=== PATIENT | male | born 1945 | race Caucasian/White ===

== ENCOUNTER → 2017-08-06 | Outpatient (CLI) | payer BC ==
[~2017-08-06] MED LIST: ASPEC325 PO; CLOP1TAB15 PO; GLC500 PO; ISOS30TA3 PO; MCR25 PO; METO50TA7 PO; SIMV20TA2 PO; ZYRUNK
[2017-08-06 12:06] LABS: HEMATOCRIT 37.4 % (42-52); MEAN CELL VOLUME 93.3 fL (80-100); MEAN CORPUSCULAR HEMOGLOBIN 30.4 pg (25-34); MEAN CORPUSCULAR HGB CONC 32.6 g/dl (32-36); MEAN PLATELET VOLUME 10.1 fL (7.4-10.4); PLATELET COUNT 294 K/uL (130-400); RED BLOOD COUNT 4.01 M/uL (4.7-6.1); WHITE BLOOD COUNT 6.83 K/uL (4.8-10.8)
[2017-08-06 12:20] LABS: ALT/SGPT 22 U/L (12-78); BLOOD UREA NITROGEN 20 mg/dl (7-18); BUN/CREATININE RATIO 24.2 (10-20); CALCIUM 9.4 mg/dl (8.5-10.1); CARBON DIOXIDE 30 mmol/L (21-32); CHLORIDE 101 mmol/L (98-107); CREATININE 0.83 mg/dl (0.60-1.40); GLUCOSE 144 mg/dl (70-99); SODIUM 137 mmol/L (136-145)
[2017-08-06 12:30] LABS: ALKALINE PHOSPHATASE 40 U/L (45-117); AST/SGOT 22 U/L (15-37); CHOLESTEROL 124 mg/dl (0-200); CHOLESTEROL/HDL RATIO 2.7; HDL CHOLESTEROL 46 mg/dl; LDL CHOLESTEROL CALCULATED 56 mg/dl; TRIGLYCERIDES 110 mg/dl (0-150); VERY LOW DENSITY LIPOPROT CALC 22 mg/dl
[2017-08-06 12:47] LABS: ESTIMATED AVERAGE GLUCOSE 197 mg/dl; HA1C FLAG Normal (Normal)
== END | disposition home or self-care (01) ==
LOC: C.LABBFT 07:15
PROVIDERS: ATTEND Internal Medicine Cardiovascular Disease
DX: E11.41 Type 2 diabetes mellitus with diabetic mononeuropathy (principal)

== ENCOUNTER 2020-10-16 18:07 | Inpatient (IN) ==
[2020-10-16] MEDS ORDERED: ACETAMINOPHEN 500 MG TAB PO STA (18:49)
--- NOTE | 2020-10-16 18:57 | Emergency Department Note ---
History of Present Illness General Chief complaint: Illness Stated complaint: WEAKNESS, STAGGERING, FATIGUE, SOB Time Seen by Provider: 10/16/20 18:29 Source: patient Mode of arrival: ambulatory Limitations: no limitations History of Present Illness Maximum Pain Intensity: 4 This patient is a 75-year-old male who presents to the emergency department for evaluation of weakness, fatigue, loss of balance, decreased appetite and shortness of breath. He states that symptoms started 5 days ago but have really worsened over the past 3-4 days. He feels extremely tired and unable to do his normal daily activities. He states that he has some dizziness when he stands up and loss of balance when he tries to get around the house. He notes some intermittent shortness of breath. He has not checked his temperature. He denies any pain, cough, or nasal congestion. Patient lives at home with his and states that she has not been sick. He does report that they have been out of the house intermittently and in contact with "a few" people. He is unaware of any known [facility] contacts. Home Medications Medication Instructions Recorded Confirmed Type ascorbate calcium (vitamin C) 500 500 mg PO QPM 06/19/19 10/16/20 History mg tablet multivitamin 1 tab PO QPM 06/19/19 10/16/20 History nitroglycerin 0.4 mg sublingual 0.4 mg SL DIRECTED PRN 06/19/19 10/16/20 History tablet Zyrtec 10 mg PO DIRECTED PRN 06/23/19 10/16/20 History metoprolol tartrate 50 mg tablet 25 mg PO BID #90 tab 09/28/19 10/16/20 Rx metformin 500 mg tablet 1,000 mg PO BID #360 tab 03/28/20 10/16/20 Rx atorvastatin 80 mg tablet 80 mg PO HS #90 tab 06/29/20 10/16/20 Rx glimepiride 4 mg tablet 4 mg PO BID #180 tab 06/29/20 10/16/20 Rx isosorbide mononitrate 120 mg 120 mg PO QAM #90 tab 06/29/20 10/16/20 Rx tablet,extended release 24 hr levothyroxine 50 mcg tablet 50 mcg PO QAM #90 tab 08/30/20 10/16/20 Rx aspirin [Aspirin Low Dose] 81 mg PO QAM 10/16/20 10/16/20 History dulaglutide [Trulicity] 1.5 mg SQ WK 10/16/20 10/16/20 History Allergies Allergy/AdvReac Type Severity Reaction Status Date / Time peanut Allergy Mild THROAT Verified 09/29/20 09:48 SCRATCHY,SWELLING Past Med/Surg History Medical History (Updated 10/18/20 @ 06:10 by Tata Elise PA-C) Antiplatelet or antithrombotic long-term use Arthritis CAD (coronary artery disease) S/p 1 stent in 10/2008 Diabetes TYPE 2 History of EKG ECG 07-SEP-2018 showed normal sinus rhythm (78) with normal ECG compared with ECG of 03-MAY-2007 07:16, Inverted T waves have replaced nonspecific T wave abnormality in Inferior leads T wave amplitude has decreased in Anterior leads Hyperlipidemia Hypothyroid Surgical History History of ankle surgery Right ankle, screws placed, 1970s History of cardiac cath 2007 1 STENT History of colonoscopy (06/2019) 3 tubular adenomas, recheck 5 years, Case History of coronary artery stent placement History of intravascular stent placement CARDIAC History of open reduction and internal fixation (ORIF) procedure RIGHT ANKLE-INFECTION S/P Mohs surgery for basal cell carcinoma Family History Mother Diabetes Uncle Myocardial infarction Denies family history of Ovarian cancer Prostate cancer Breast cancer Colorectal cancer Social History Smoking Status: Former smoker Age Started Using Tobacco: 18; Age Quit Using Tobacco: 36; packs per day: 0.5; Years Smoked: 18; Cigarettes Per Day: <10; Number of Years Since Quit: 35; Second Hand Exposure: No; Hx Alcohol Use: Yes Alcohol type: beer and wine Alcohol Intake Frequency: Monthly or Less Hx Substance Use: No Preferred Language: Kiswahili Communication Ability: Effective Visual Impairment: No Limitations Hearing Ability: Normal [employer] Worker Required: No Beliefs That Will Affect Care: None marital status: Current Living Situation: Spouse current occupational status: employed current occupation: self employed Feels Safe at Home: Yes Safety Concerns: Feels Safe At This Time Childhood Exposure to Second-Hand Smoke: Yes caffeine: Yes (coffee) during the past year weight has: remained stable Dental Care, Regularly: Yes Physical Activity Frequency: Daily Seatbelt Use: always Sunscreen Use: Yes Assistive Devices: Denture - Upper, Denture - Lower, Glasses and Oxygen - Continuous Review of Systems A total of 10 systems reviewed and were otherwise negative Physical Exam Vital Signs Vital Signs - 24 hr 10/16/20 18:22 10/16/20 18:25 10/16/20 18:42 Temperature 37.2 C 39.2 C H Temperature Source Oral Oral Pulse Rate 92 H Respiratory Rate 18 Respiratory Effort / Characteristics Non-Labored Spontaneous Respiratory Depth Normal Blood Pressure 149/67 H Blood Pressure Mean 94 Pulse Oximetry 82 L 92 Oxygen Delivery Method Room Air Nasal Cannula Oxygen Flow Rate 4 Sepsis Recent Fever Within 48 Hours No Sepsis New/Unexplained Change in Mental Status No Sepsis Action Taken by Nursing No Action Required VITALS: Vitals are noted on the nurse's note and reviewed by myself. GENERAL: This is a 75-year-old male, ill-appearing, pale. SKIN: The skin was without rashes. EARS: External auditory canals clear, tympanic membranes pearly arellano without erythema or effusion bilaterally. EYES: Pupils equal round and reactive to light and accommodation. NOSE: Patent, turbinates without inflammation or discharge. MOUTH: Mucous membranes moist. Tonsils are not enlarged. Pharynx without erythema or exudate. NECK: Supple without nuchal rigidity. No lymphadenopathy. HEART: Regular rate and rhythm without murmurs gallops or rubs. LUNGS: On O2 via nasal cannula. Clear to auscultation bilaterally without wheezes, rales or rhonchi. No retractions or accessory muscle use. ABDOMEN: Positive bowel sounds x 4. Soft, nontender to palpation. EXTREMITIES: No lower extremity edema or calf tenderness. NEURO: Patient was alert and oriented to person place and time. Course Consultations Consultation #1: Dr. Anderson - [facility] hospitalist Administered Medications Albuterol (Albuterol Hfa 8 Gm Inhaler) 2 puffs INH QIDR ANA MARIA Stop: 11/16/20 06:59 Last Admin: 10/17/20 20:36 Dose: 2 puffs Documented by: [id number] Admin: 10/17/20 15:16 Dose: 2 puffs Documented by: [id number] Admin: 10/17/20 11:23 Dose: 2 puffs Documented by: [id number] Admin: 10/17/20 07:26 Dose: 2 puffs Documented by: [id number] Aspirin (Aspirin 81 Mg Ectab) 81 mg PO QAM [facility] Stop: 11/16/20 08:59 Last Admin: 10/17/20 09:12 Dose: 81 mg Documented by: [id number] Atorvastatin Calcium (Atorvastatin 40 Mg Tab) 80 mg PO HS [facility] Stop: 11/16/20 20:59 Last Admin: 10/17/20 09:13 Dose: 80 mg Documented by: [id number] Enoxaparin Sodium (Enoxaparin Inj 60 Mg/0.6 Ml Syr) 50 mg SQ Q12H ANA MARIA Stop: 11/16/20 07:14 Last Admin: 10/17/20 21:27 Dose: 50 mg Documented by: [id number] Admin: 10/17/20 09:02 Dose: 50 mg Documented by: [id number] Ceftriaxone Sodium 2,000 mg/ (Dextrose) 70 mls @ 100 mls/hr IV Q24H ANA MARIA; Protocol Stop: 10/23/20 23:29 Last Infusion: 10/17/20 23:16 Dose: 0 mls/hr Documented by: [id number] Admin: 10/17/20 21:33 Dose: 100 mls/hr Documented by: [id number] Infusion: 10/17/20 03:49 Dose: 0 mls/hr Documented by: [id number] Infusion: 10/17/20 02:19 Dose: 100 mls/hr Documented by: [id number] Infusion: 10/17/20 01:42 Dose: 0 mls/hr Documented by: [id number] Admin: 10/17/20 01:37 Dose: 100 mls/hr Documented by: [id number] Azithromycin 500 mg/ Dextrose 255 mls @ 125 mls/hr IV DAILY ANA MARIA Stop: 10/24/20 08:59 Last Infusion: 10/17/20 12:14 Dose: 0 mls/hr Documented by: [id number] Admin: 10/17/20 10:22 Dose: 125 mls/hr Documented by: [id number] Remdesivir 100 mg/ Sodium (Chloride) 250 mls @ 250 mls/hr IV Q24H ANA MARIA; Protocol Stop: 10/21/20 00:59 Last Infusion: 10/18/20 00:14 Dose: 0 mls/hr Documented by: [id number] Admin: 10/17/20 23:14 Dose: 250 mls/hr Documented by: [id number] Dexamethasone Sodium Phosphate (6 mg/ Syringe) 1.5 mls @ 1 mls/min IV QAM [facility] Stop: 10/25/20 09:02 Last Admin: 10/17/20 09:11 Dose: 1 mls/min Documented by: [id number] Insulin Aspart (Insulin Aspart 100 Units/Ml 3 Ml Pen) 0 units SC ACHS ANA MARIA Stop: 11/16/20 07:29 Last Admin: 10/17/20 21:49 Dose: 5 units Documented by: [id number] Cosigned by: [id number] Admin: 10/17/20 17:43 Dose: 13 units Documented by: [id number] Cosigned by: [id number] Admin: 10/17/20 12:13 Dose: 10 units Documented by: [id number] Cosigned by: [id number] Admin: 10/17/20 10:44 Dose: 9 units Documented by: [id number] Cosigned by: [id number] Insulin Glargine (Insulin Glargine Solostar 100 Units/Ml 3 Ml Pen) 0 units SC HS [facility]; Protocol Stop: 11/16/20 20:59 Last Admin: 10/17/20 21:49 Dose: 20 units Documented by: [id number] Cosigned by: [id number] Isosorbide Mononitrate (Isosorbide [place] Extended Rel 60 Mg Tabcr) [facility] [place]: 11/16/20 08:59 Last Admin: 10/17/20 09:12 Dose: 120 mg Documented by: [id number] Levothyroxine Sodium (Levothyroxine Sodium 50 Mcg Tablet) 50 mcg PO DAILYBB [facility] Stop: 11/16/20 06:29 Last Admin: 10/17/20 04:54 Dose: 50 mcg Documented by: [id number] Metoprolol Tartrate (Metoprolol Tartrate 25 Mg Tab) 25 mg PO BID [facility] Stop: 11/15/20 22:54 Last Admin: 10/17/20 21:28 Dose: 25 mg Documented by: [id number] Admin: 10/17/20 09:13 Dose: 25 mg Documented by: [id number] Admin: 10/17/20 01:37 Dose: 25 mg Documented by: [id number] Multivitamins (Multivitamin Tab) 1 tab PO QPM [facility] Stop: 11/16/20 20:59 Last Admin: 10/17/20 21:29 Dose: 1 tab Documented by: [id number] Senna/Docusate Sodium (Docusate Sodium/Senna 50/8.6mg Tab) 2 tab PO HS ANA MARIA Stop: 11/16/20 20:59 Last Admin: 10/17/20 21:31 Dose: 2 tab Documented by: [id number] Sodium Chloride (Sodium Chloride 0.9% 10ml Flush) 30 ml IV Q24H ANA MARIA Stop: 10/21/20 00:01 Last Admin: 10/18/20 00:31 Dose: 30 ml Documented by: [id number] Admin: 10/17/20 02:19 Dose: 30 ml Documented by: [id number] Discontinued Medications Acetaminophen (Acetaminophen 500 Mg Tab) 1,000 mg PO NOW STA Stop: 10/16/20 18:50 Last Admin: 10/16/20 19:35 Dose: 1,000 mg Documented by: [id number] Sodium Chloride (Nss) 500 mls @ 999 mls/hr IV .Q31M ONE Stop: 10/16/20 20:53 Last Infusion: 10/16/20 22:03 Dose: 0 mls/hr Documented by: [id number] Admin: 10/16/20 21:21 Dose: 999 mls/hr Documented by: [id number] Remdesivir 200 mg/ Sodium (Chloride) 250 mls @ 125 mls/hr IV ONE ONE; Protocol Stop: 10/17/20 01:59 Last Infusion: 10/17/20 04:55 Dose: 0 mls/hr Documented by: [id number] Admin: 10/17/20 02:19 Dose: 125 mls/hr Documented by: [id number] Dexamethasone Sodium Phosphate (10 mg/ Syringe) 2.5 mls @ 1 mls/min IV 0000 ANA MARIA Stop: 10/17/20 00:30 Last Admin: 10/17/20 01:37 Dose: 1 mls/min Documented by: [id number] Insulin Human Regular 8 units/ (Syringe) 8 mls @ 30 mls/min IV TODAY@1245 ONE Stop: 10/17/20 12:46 Last Admin: 10/17/20 13:34 Dose: 30 mls/min Documented by: [id number] Cosigned by: [id number] Insulin Aspart (Insulin Aspart 100 Units/Ml 3 Ml Pen) 0 units SC 0200 ANA MARIA Stop: 10/18/20 02:01 Last Admin: 10/18/20 02:43 Dose: Not Given Documented by: [id number] Cosigned by: [id number] Insulin Human NPH (Insulin Human Nph) 40 units SC NOW ONE Stop: 10/17/20 12:31 Last Admin: 10/17/20 12:45 Dose: 40 units Documented by: [id number] Cosigned by: [id number] Ioversol (Optiray 320 125ml) 125 ml IV ONCE ONE Stop: 10/16/20 22:38 Last Admin: 10/16/20 22:38 Dose: 119 ml Documented by: [id number] Medical Decision Making Differential Diagnosis Differential diagnosis includes COVID-19, pneumonia, ACS, PE, pleural effusion, malignancy, pneumothorax, among others. Home Medications Current Medication List: was personally reviewed by me Laboratory Data Attestation: I reviewed the patient's lab results. Result diagrams: 10/16/20 19:26 10/16/20 19:26 Lab Results 10/16/20 10/16/20 10/16/20 Range/Units 19:26 19:26 19:26 WBC 11.00 H (4.8-10.8) K/uL RBC 3.62 L (4.7-6.1) M/uL Hgb 10.9 L (14.0-18.0) g/dL Hct 32.6 L (42-52) % MCV 90.1 (80-100) fL MCH 30.1 (25-34) pg MCHC 33.4 (32-36) g/dL RDW Std Deviation 41.4 (36.4-46.3) fL RDW Coeff of Shaheed 12.5 (11.5-14.5) % Plt Count 252 (130-400) K/uL MPV 10.5 H (7.4-10.4) fL Immature Gran % (Auto) 0.4 % Neut % (Auto) 89.7 % Lymph % (Auto) 6.7 % [place] % (Auto) 3.0 % Eos % (Auto) 0.0 % Baso % (Auto) 0.2 % Neut # (Auto) 9.87 H (1.4-6.5) K/uL Lymph # (Auto) 0.74 L (1.2-3.4) K/uL [place] # (Auto) 0.33 (0.11-0.59) K/uL Eos # (Auto) 0.00 (0-0.5) K/uL Baso # (Auto) 0.02 (0-0.2) K/uL Immature Gran # (Auto) 0.04 H (0.00-0.02) K/uL D-Dimer (0-500) ug/L FEU VBG pH (7.36-7.41) VBG pCO2 (38-50) mmHg VBG pO2 mmHg VBG HCO3 mmol/L VBG O2 Saturation % VBG Base Excess mEq/L Barometric Pressure mm/Hg Sodium 130 L (136-145) mmol/L Potassium 3.5 (3.5-5.1) mmol/L Chloride 93 L (98-107) mmol/L Carbon Dioxide 25 (21-32) mmol/L Anion Gap 12.0 H (3-11) BUN 27 H (7-18) mg/dl Creatinine 1.13 (0.6-1.4) mg/dl Est Cr Clr Drug Dosing Not Reportable Est GFR ( Amer) 73.8 Est GFR (Non-Af Amer) 63.7 BUN/Creatinine Ratio 23.8 H (10-20) Glucose 280 H (70-99) mg/dl Estimat Average Glucose mg/dl Hemoglobin A1c (4.5-5.6) % Calcium 9.2 (8.5-10.1) mg/dl Total Bilirubin 0.8 (0.2-1) mg/dl AST 53 H (15-37) U/L ALT 35 (12-78) U/L Alkaline Phosphatase 39 L (45-117) U/L Troponin I < 0.015 (0-0.045) ng/ml Total Protein 8.0 (6.4-8.2) gm/dl Albumin 3.1 L (3.4-5.0) gm/dl Globulin 4.9 H (2.5-4.0) gm/dl Albumin/Globulin Ratio 0.6 L (0.9-2) COVID-19 Eval Order SARS-CoV-2, RNA, NAAT (NEGATIVE) Blood Type O Positive Antibody Screen NEGATIVE 10/16/20 10/16/20 10/16/20 Range/Units 19:26 19:26 19:27 WBC (4.8-10.8) K/uL RBC (4.7-6.1) M/uL Hgb (14.0-18.0) g/dL Hct (42-52) % MCV (80-100) fL MCH (25-34) pg MCHC (32-36) g/dL RDW Std Deviation (36.4-46.3) fL RDW Coeff of Shaheed (11.5-14.5) % Plt Count (130-400) K/uL MPV (7.4-10.4) fL Immature Gran % (Auto) % Neut % (Auto) % Lymph % (Auto) % [place] % (Auto) % Eos % (Auto) % Baso % (Auto) % Neut # (Auto) (1.4-6.5) K/uL Lymph # (Auto) (1.2-3.4) K/uL [place] # (Auto) (0.11-0.59) K/uL Eos # (Auto) (0-0.5) K/uL Baso # (Auto) (0-0.2) K/uL Immature Gran # (Auto) (0.00-0.02) K/uL D-Dimer (0-500) ug/L FEU VBG pH 7.44 H (7.36-7.41) VBG pCO2 37 L (38-50) mmHg VBG pO2 34 mmHg VBG HCO3 24 mmol/L VBG O2 Saturation 65.3 % VBG Base Excess 0.3 mEq/L Barometric Pressure 734.9 mm/Hg Sodium (136-145) mmol/L Potassium (3.5-5.1) mmol/L Chloride (98-107) mmol/L Carbon Dioxide (21-32) mmol/L Anion Gap (3-11) BUN (7-18) mg/dl Creatinine (0.6-1.4) mg/dl Est Cr Clr Drug Dosing Est GFR ( Amer) Est GFR (Non-Af Amer) BUN/Creatinine Ratio (10-20) Glucose (70-99) mg/dl Estimat Average Glucose 214 mg/dl Hemoglobin A1c 9.1 H (4.5-5.6) % Calcium (8.5-10.1) mg/dl Total Bilirubin (0.2-1) mg/dl AST (15-37) U/L ALT (12-78) U/L Alkaline Phosphatase (45-117) U/L Troponin I (0-0.045) ng/ml Total Protein (6.4-8.2) gm/dl Albumin (3.4-5.0) gm/dl Globulin (2.5-4.0) gm/dl Albumin/Globulin Ratio (0.9-2) COVID-19 [email or web address] SARS-CoV-2, RNA, NAAT (NEGATIVE) Blood Type Antibody Screen 10/16/20 10/16/20 Range/Units 19:27 19:35 WBC (4.8-10.8) K/uL RBC (4.7-6.1) M/uL Hgb (14.0-18.0) g/dL Hct (42-52) % MCV (80-100) fL MCH (25-34) pg MCHC (32-36) g/dL RDW Std Deviation (36.4-46.3) fL RDW Coeff of Shaheed (11.5-14.5) % Plt Count (130-400) K/uL MPV (7.4-10.4) fL Immature Gran % (Auto) % Neut % (Auto) % Lymph % (Auto) % [place] % (Auto) % Eos % (Auto) % Baso % (Auto) % Neut # (Auto) (1.4-6.5) K/uL Lymph # (Auto) (1.2-3.4) K/uL [place] # (Auto) (0.11-0.59) K/uL Eos # (Auto) (0-0.5) K/uL Baso # (Auto) (0-0.2) K/uL Immature Gran # (Auto) (0.00-0.02) K/uL D-Dimer 1640 H* (0-500) ug/L FEU VBG pH (7.36-7.41) VBG pCO2 (38-50) mmHg VBG pO2 mmHg VBG HCO3 mmol/L VBG O2 Saturation % VBG Base Excess mEq/L Barometric Pressure mm/Hg Sodium (136-145) mmol/L Potassium (3.5-5.1) mmol/L Chloride (98-107) mmol/L Carbon Dioxide (21-32) mmol/L Anion Gap (3-11) BUN (7-18) mg/dl Creatinine (0.6-1.4) mg/dl Est Cr Clr Drug Dosing Est GFR ( Amer) Est GFR (Non-Af Amer) BUN/Creatinine Ratio (10-20) Glucose (70-99) mg/dl Estimat Average Glucose mg/dl Hemoglobin A1c (4.5-5.6) % Calcium (8.5-10.1) mg/dl Total Bilirubin (0.2-1) mg/dl AST (15-37) U/L ALT (12-78) U/L Alkaline Phosphatase (45-117) U/L Troponin I (0-0.045) ng/ml Total Protein (6.4-8.2) gm/dl Albumin (3.4-5.0) gm/dl Globulin (2.5-4.0) gm/dl Albumin/Globulin Ratio (0.9-2) COVID-19 Eval Order SARS-CoV-2, RNA, NAAT POSITIVE A* (NEGATIVE) Blood Type Antibody Screen Imaging Data Attestation: I personally reviewed and interpreted this imaging study as follows: Radiologist's Impression: XR chest 1V portable FINDINGS: Cardiomediastinal and hilar silhouettes are within normal limits. No pneumothorax, pleural effusion or overt pulmonary edema. Bibasilar predominant interstitial opacities. No lobar airspace consolidation. Degenerative changes of the shoulders and spine. IMPRESSION: Interstitial opacities of the lung bases are suggestive of a nonspecific infectious or inflammatory pneumonitis. CT angio chest PE protocol FINDINGS: CTA: Heart is normal in size without pericardial effusion. Moderate coronary artery calcifications. Mild mixed plaque of the thoracic aorta without aneurysm or dissection. Patency of the imaged great vessels. The pulmonary arterial tree is opacified to the level of the subsegmental branches. No filling defects lorelei ntified to suggest thromboembolic disease. CT CHEST: Unremarkable thyroid. Prominent mediastinal and hilar lymph nodes measuring up to 9 mm. The inferior lung bases are not imaged, partially outside the [id number]. There is no pneumothorax, pleural effusion or overt pulmonary edema. Mild tracheobronchial secretions. Subpleural dependent predominant groundglass and alveolar opacities are noted within the bilateral lower lobes with additional patchy subtle subsegmental groundglass opacities noted within the right middle and bilateral upper lobes. Mild subpleural reticulation. No definite suspicious pulmonary nodules or masses. No acute process of the imaged upper abdomen. Mild gynecomastia. Unremarkable soft tissues. Degenerative changes of the shoulders and spine. No acute fracture or suspicious bone lesion. IMPRESSION: 1. No evidence of pulmonary thromboembolic disease. 2. Bibasilar predominant groundglass and consolidative opacities are compatible with a nonspecific multifocal infectious or inflammatory pneumonitis. 3. Prominent mediastinal and hilar lymph nodes are likely reactive. ECG Data Attestation: I personally reviewed and interpreted this ECG as follows: Indication: + SOB/dyspnea Rate (beats per minute): 98 Rhythm: + normal sinus ECG ST segments: + Nonspecific ST abnormalities ECG Findings: + PACs Change: no significant change MDM Narrative This patient is a 75-year-old male who presents to the emergency department for evaluation of fatigue, dyspnea and fever. Patient is COVID-19 positive. Chest x-ray consistent with COVID-19. Labs revealed a mild leukocytosis, mild anemia. Kidney function within normal limits. Troponin was not elevated. D-dimer was ordered at request of the hospitalist and was elevated. Chest CTA then performed at the request. Patient did arrive hypoxic with oxygen saturation of 82% on room air. Patient placed on oxygen via nasal cannula with improvement of his oxygen saturation. Patient will be admitted to the hospitalist service for further evaluation and care. Impression & Plan Pneumonia due to COVID-19 virus, Hypoxia Discharge Plan Visit Data Chief Complaint: Illness Stated Complaint: WEAKNESS, STAGGERING, FATIGUE, SOB ED Provider: Jovanny Brock ED Midlevel Provider: Tata Elise Discharge Problem: Pneumonia due to COVID-19 virus, Hypoxia Patient Disposition: Admitted As Inpatient Discharge Instructions Interventions: ED Discharge Assessment Last Done: 10/16/20 22:13
[2020-10-16 19:51] LABS: Hematocrit (blood only) 32.6 % (42-52); Hemoglobin 10.9 g/dL (14.0-18.0); Mean Corpuscular Hemoglobin 30.1 pg (25-34); Mean Corpuscular Hgb Conc 33.4 g/dL (32-36); Mean Corpuscular Volume 90.1 fL (80-100); Mean Platelet Volume 10.5 fL (7.4-10.4); Platelet Count 252 K/uL (130-400); RDW Coefficient of Variation 12.5 % (11.5-14.5); RDW Standard Deviation 41.4 fL (36.4-46.3); Red Blood Count 3.62 M/uL (4.7-6.1)
[2020-10-16 19:52] LABS: Base Excess VBG 0.3 mEq/L; Oxygen Saturation VBG 65.3 %; pH VBG 7.44 (7.36-7.41)
[2020-10-16 20:11] LABS: Alanine Aminotransferase 35 U/L (12-78); Albumin Level 3.1 gm/dl (3.4-5.0); Aspartate Aminotransferase 53 U/L (15-37); BUN Creatinine Ratio 23.8 (10-20); Blood Urea Nitrogen 27 mg/dl (7-18); Calcium 9.2 mg/dl (8.5-10.1); Carbon Dioxide 25 mmol/L (21-32); Chloride 93 mmol/L (98-107); Est GFR (African American) 73.8; Est GFR (Non-African American) 63.7; Glucose 280 mg/dl (70-99); Potassium 3.5 mmol/L (3.5-5.1); Sodium 130 mmol/L (136-145)
[2020-10-16 20:15] LABS: Albumin Globulin Ratio 0.6 (0.9-2); Alkaline Phosphatase 39 U/L (45-117); Bilirubin,Total 0.8 mg/dl (0.2-1); Globulin 4.9 gm/dl (2.5-4.0); Troponin I < 0.015 ng/ml (0-0.045)
[2020-10-16] MEDS ORDERED: SODIUM CHLORIDE 0.9% 500 ML IV ONE (20:23)
[2020-10-16 20:41] LABS: Basophils # (auto) 0.02 K/uL (0-0.2); Basophils % (auto) 0.2 %; Immature Granulocytes # (auto) 0.04 K/uL (0.00-0.02); Immature Granulocytes % (auto) 0.4 %; Lymphocytes # (auto) 0.74 K/uL (1.2-3.4); Lymphocytes % (auto) 6.7 %; Monocytes # (auto) 0.33 K/uL (0.11-0.59); Neutrophils # (auto) 9.87 K/uL (1.4-6.5); Neutrophils % (auto) 89.7 %
[2020-10-16 20:53] LABS: D Dimer 1640 ug/L FEU (0-500)
--- NOTE | 2020-10-16 21:47 | History & Physical Report ---
Date of Service October 16, 2020 Assessment & Plan (1) Pneumonia due to COVID-19 virus: Pneumonia due to COVID-19 virus with hypoxia- Decadron 6 mg IV daily. Convalescent plasma, consent obtained Remdesivir IV per protocol Ceftriaxone 2 g IV daily Azithromycin 500 mg IV daily Nasal cannula oxygen, titrate to keep pulse ox 95% Ventolin HFA 2 puffs 4 times daily, and every 2 hours as needed Present on Admission?: Yes (2) Hypoxia: See above Present on Admission?: Yes (3) Hyperlipidemia: Continue atorvastatin 80 mg daily Present on Admission?: Yes (4) Hypothyroidism: Continue levothyroxine sodium 50 mcg daily Present on Admission?: Yes (5) CAD (coronary artery disease): CAD/hypertension Continue aspirin 81 mg daily, isosorbide mononitrate extended release 120 mg daily, metoprolol tartrate 25 mg p.o. 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 Placed on Accu-Cheks before meals and at bedtime with NovoLog coverage per scale Check hemoglobin A1c Present on Admission?: Yes History of Present Illness Chief Complaint: The patient presents to the emergency department with complaint of generalized weakness, fatigue, loss of balance, decreased appetite and shortness of breath that began 5 days ago, but have worsened over the past 3 to 4 days Primary Care Provider: Steve Vidal MD The patient is a 75-year-old male with a past medical history including basal cell carcinoma, diabetes mellitus with retinopathy, angina class II, hyperlipidemia, hypothyroidism, peripheral neuropathy, postural dizziness, CAD and hyponatremia. He presents as noted above to the ED at the insistence of family and . Work-up in the emergency department included laboratories: Sodium 120, glucose 280, AST 53, albumin 3.1, WBC 11.0. COVID-19 testing was positive. Chest x-ray was negative. D-dimer was elevated at 1640. Patient's pulse ox was noted initially to be 82% on room air Allergies Allergy/AdvReac Type Severity Reaction Status Date / Time peanut Allergy Mild THROAT Verified 09/29/20 09:48 SCRATCHY,SWELLING Home Medications Medication Instructions Recorded Confirmed Type ascorbate calcium (vitamin C) 500 500 mg PO QPM 06/19/19 10/16/20 History mg tablet multivitamin 1 tab PO QPM 06/19/19 10/16/20 History nitroglycerin 0.4 mg sublingual 0.4 mg SL DIRECTED PRN 06/19/19 10/16/20 History tablet Zyrtec 10 mg PO DIRECTED PRN 06/23/19 10/16/20 History metoprolol tartrate 50 mg tablet 25 mg PO BID #90 tab 09/28/19 10/16/20 Rx metformin 500 mg tablet 1,000 mg PO BID #360 tab 03/28/20 10/16/20 Rx atorvastatin 80 mg tablet 80 mg PO HS #90 tab 06/29/20 10/16/20 Rx glimepiride 4 mg tablet 4 mg PO BID #180 tab 06/29/20 10/16/20 Rx isosorbide mononitrate 120 mg 120 mg PO QAM #90 tab 06/29/20 10/16/20 Rx tablet,extended release 24 hr levothyroxine 50 mcg tablet 50 mcg PO QAM #90 tab 08/30/20 10/16/20 Rx aspirin [Aspirin Low Dose] 81 mg PO QAM 10/16/20 10/16/20 History dulaglutide [Trulicity] 1.5 mg SQ WK 10/16/20 10/16/20 History Past Med/Surg History Medical History (Updated 10/17/20 @ 05:34 by Feroz Anderson MD) Antiplatelet or antithrombotic long-term use Arthritis CAD (coronary artery disease) S/p 1 stent in 10/2008 Diabetes TYPE 2 History of EKG ECG 07-SEP-2018 showed normal sinus rhythm (78) with normal ECG compared with ECG of 03-MAY-2007 07:16, Inverted T waves have replaced nonspecific T wave abnormality in Inferior leads T wave amplitude has decreased in Anterior leads Hyperlipidemia Hypothyroid Surgical History History of ankle surgery Right ankle, screws placed, 1970s History of cardiac cath 2007 1 STENT History of colonoscopy (06/2019) 3 tubular adenomas, recheck 5 years, Case History of coronary artery stent placement History of intravascular stent placement CARDIAC History of open reduction and internal fixation (ORIF) procedure RIGHT ANKLE-INFECTION S/P Mohs surgery for basal cell carcinoma Family History Mother Diabetes Uncle Myocardial infarction Denies family history of Ovarian cancer Prostate cancer Breast cancer Colorectal cancer Social History Smoking Status: Former smoker Age Started Using Tobacco: 18; Age Quit Using Tobacco: 36; packs per day: 0.5; Years Smoked: 18; Cigarettes Per Day: <10; Number of Years Since Quit: 35; Second Hand Exposure: No; Hx Alcohol Use: Yes Alcohol type: beer and wine Alcohol Intake Frequency: Monthly or Less Hx Substance Use: No Preferred Language: Mongolian Communication Ability: Effective Visual Impairment: No Limitations Hearing Ability: Normal Lead Java J2Ee Developer Required: No Beliefs That Will Affect Care: None marital status: Current Living Situation: Spouse current occupational status: employed current occupation: self employed Feels Safe at Home: Yes Safety Concerns: Feels Safe At This Time Childhood Exposure to Second-Hand Smoke: Yes caffeine: Yes (coffee) during the past year weight has: remained stable Dental Care, Regularly: Yes Physical Activity Frequency: Daily Seatbelt Use: always Sunscreen Use: Yes Assistive Devices: Brace/Splint/Immobilizer, Denture - Upper, Denture - Lower and Glasses Review of Systems Review of Systems: The patient denies chest pain, palpitations, cough, lower extremity swelling, sore throat, fevers, chills, sweats, nausea, vomiting, diarrhea, constipation, abdominal pain, pelvic pain, blood in urine or stool, dysuria, urinary frequency or urgency, lightheadedness, dizziness, headache, memory loss, loss of consciousness, rash, abnormal bruising or bleeding, imbalance, focal weakness, numbness or tingling in arms or legs, back or neck pain, or night sweats. The review of systems is otherwise negative other than for that already noted above, and at least 10 systems have been reviewed. Physical Exam Physical Exam: The patient is awake, alert and oriented 3, well developed and well nourished, normocephalic and atraumatic, lying in bed and in no acute distress. HEENT--PERRL, EOMI, mucous membranes and oropharynx normal. Neck--supple. No JVD. No bruits. Thyroid normal, trachea midline, no adenopathy. Heart--normal S1 and S2. No murmurs, rubs or gallops. Lungs--clear bilaterally, no respiratory distress, no accessory muscle use. Abdomen--normal bowel sounds and soft. Nontender. Nondistended. Extremities--no cyanosis or clubbing. No edema. Dermatologic--normal skin turgor, normal color, no abnormal lymph nodes, no rash. Neurologic--cranial nerves II through XII grossly intact. Rheumatologic--normal range of motion. Psychiatric--normal affect. Results & Data Results & Data ([facility]) Vital Signs (Past 12 Hours) Vital Signs Temp Pulse Resp BP Pulse Ox 10/16/20 21:30 72 20 116/98 97 10/16/20 21:22 99.1 F 10/16/20 21:00 83 12 135/78 95 10/16/20 20:30 78 35 H 125/62 99 10/16/20 20:00 93 H 37 H 114/67 94 10/16/20 19:35 97 H 22 130/68 97 10/16/20 19:30 92 H 18 97 10/16/20 18:42 102.6 F H 10/16/20 18:25 92 10/16/20 18:22 99.0 F 92 H 18 149/67 H 82 L Laboratory Results Laboratory Results WBC 11.00 K/uL (4.8-10.8) H 10/16/20 19: RBC 3.62 M/uL (4.7-6.1) L 10/16/20 19: Hgb 10.9 g/dL (14.0-18.0) L 10/16/20 19: Hct 32.6 % (42-52) L 10/16/20 19: MCV 90.1 fL (80-100) 10/16/20 19: MCH 30.1 pg (25-34) 10/16/20 19: MCHC 33.4 g/dL (32-36) 10/16/20 19: RDW Std Deviation 41.4 fL (36.4-46.3) 10/16/20 19: RDW Coeff of Shaheed 12.5 % (11.5-14.5) 10/16/20 19: Plt Count 252 K/uL (130-400) 10/16/20 19: MPV 10.5 fL (7.4-10.4) H 10/16/20 19: Immature Gran % (Auto) 0.4 % 10/16/20 19: Neut % (Auto) 89.7 % 10/16/20 19: Lymph % (Auto) 6.7 % 10/16/20 19: Armstrong % (Auto) 3.0 % 10/16/20 19: Eos % (Auto) 0.0 % 10/16/20 19: Baso % (Auto) 0.2 % 10/16/20 19: Neut # (Auto) 9.87 K/uL (1.4-6.5) H 10/16/20 19: Lymph # (Auto) 0.74 K/uL (1.2-3.4) L 10/16/20 19: Armstrong # (Auto) 0.33 K/uL (0.11-0.59) 10/16/20 19: Eos # (Auto) 0.00 K/uL (0-0.5) 10/16/20 19: Baso # (Auto) 0.02 K/uL (0-0.2) 10/16/20 19: Immature Gran # (Auto) 0.04 K/uL (0.00-0.02) H 10/16/20 19: D-Dimer 1640 ug/L FEU (0-500) H* 10/16/20 19:35 VBG pH 7.44 (7.36-7.41) H 10/16/20 19: VBG pCO2 37 mmHg (38-50) L 10/16/20 19: VBG pO2 34 mmHg 10/16/20 19:26 VBG HCO3 24 mmol/L 10/16/20 19:26 VBG O2 Saturation 65.3 % 10/16/20 19: VBG Base Excess 0.3 mEq/L 10/16/20 19:26 Barometric Pressure 734.9 mm/Hg 10/16/20 19:26 Sodium 130 mmol/L (136-145) L 10/16/20 19: Potassium 3.5 mmol/L (3.5-5.1) 10/16/20 19: Chloride 93 mmol/L (98-107) L 10/16/20 19:26 Carbon Dioxide 25 mmol/L (21-32) 10/16/20 19:26 Anion Gap 12.0 (3-11) H 10/16/20 19:26 BUN 27 mg/dl (7-18) H 10/16/20 19:26 Creatinine 1.13 mg/dl (0.6-1.4) 10/16/20 19:26 Est Cr Clr Drug Dosing Not Reportable 10/16/20 19:26 Est GFR ( Amer) 73.8 10/16/20 19:26 Est GFR (Non-Af Amer) 63.7 10/16/20 19:26 BUN/Creatinine Ratio 23.8 (10-20) H 10/16/20 19:26 Glucose 280 mg/dl (70-99) H 10/16/20 19:26 Calcium 9.2 mg/dl (8.5-10.1) 10/16/20 19:26 Total Bilirubin 0.8 mg/dl (0.2-1) 10/16/20 19:26 AST 53 U/L (15-37) H 10/16/20 19:26 ALT 35 U/L (12-78) 10/16/20 19:26 Alkaline Phosphatase 39 U/L (45-117) L 10/16/20 19:26 Troponin I < 0.015 ng/ml (0-0.045) 10/16/20 19:26 Total Protein 8.0 gm/dl (6.4-8.2) 10/16/20 19:26 Albumin 3.1 gm/dl (3.4-5.0) L 10/16/20 19:26 Globulin 4.9 gm/dl (2.5-4.0) H 10/16/20 19:26 Albumin/Globulin Ratio 0.6 (0.9-2) L 10/16/20 19:26 COVID-19 Eval Order Covid19 [facility]Now [facility] 10/16/20 19:27 SARS-CoV-2, RNA, NAAT POSITIVE (NEGATIVE) A* 10/16/20 19:27 Blood Type O Positive 10/16/20 19:26 Antibody Screen NEGATIVE 10/16/20 19:26 Diagnostic Findings [facility] Patient: STONE, HANY E (Male) : 47 Status: ER Date: 10/16/20 22:44 Room #: History: COVID + ELEVATED D DIMER SOB Slices: [id number] Priors: Giselle: Andre Milian @ [phone] Exams: CTA CHEST Contrast: Accession Numbers: [id number] Preliminary Findings Only See Final Report For Complete Findings CTA CHEST: The pulmonary arterial tree is well-opacified with contrast. No pulmonary emboli are identified. The thoracic aorta is mildly calcified. There is no aneurysm or dissection. The heart size is within normal limits. Mild coronary calcification is present. No pericardial effusion. Lungs demonstrate scattered faint groundglass opacities in the periphery of the upper lungs coalescing to interstitial infiltrates in the lower lobes bilaterally consistent with Covid 19 pneumonia. No pneumothorax or pleural effusion is seen. Radiologist: Doug Koenig MD Study ready at 22:49 and initial results transmitted at 23:06 *This report constitutes a preliminary interpretation only. Non-acute findings felt to be unrelated to the clinical presentation may not be discussed in this report. The study will be interpreted and a final report will be generated by the local Radiologist the following shift. To reach the hospital radiology department call [phone]. If a discrepancy is found between the preliminary and final interpretations of this study, please notify us via our Client Portal at [email or web address] can also fax this report with a description of the discrepancy, or include the final report, to our daytime fax number [phone].If faxing, please indicate the severity of discrepancy using one of the following categories: [ ] 1 - Agree/Informational [ ] 2 - Unlikely to Affect Management [ ] 3 - Possible Eventual Change of Management [ ] 4 - Probable Immediate Change of Management For all other patient related information, please fax us at [phone]. [id number] Code Status & VTE Plan Code Status Full code VTE Prophylaxis Plan VTE Prophylaxis will be ordered: Yes PG Care Time/CCT Total # of Minutes Spent Total Time Spent with Patient: Total time spent is greater than 50% in coordination of care (as documented) at patient's floor/unit and/or counseling patient: Coding Level of Care Code 92439 Initial Inpt Care Lvl 3 Diagnoses Pneumonia due to COVID-19 virus U07.1; J12.89 Hypoxia R09.02 Hyperlipidemia E78.5 Hypothyroidism E03.9 CAD (coronary artery disease) I25.10 Coronary Disease-Associated Artery/Lesion type: [place] artery [place] vs. 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 transplanted heart: [place] heart Associated angina: without angina Qualified Code(s): I25.10 - Atherosclerotic heart disease of [place] coronary artery without angina pectoris
[2020-10-16] MEDS ORDERED: OPTIRAY 320 125ml IV ONE (22:37)
[2020-10-16] MEDS ORDERED: NITROGLYCERIN SL 0.4 MG/TAB TAB SL PRN (22:55)
[2020-10-16] MEDS ORDERED: DEXTROSE 50% 50 ML SYRINGE IV PRN (22:55)
[2020-10-16] MEDS ORDERED: POLYETHYLENE (MIRALAX) 17 GM PACK PO PRN (22:55)
[2020-10-16] MEDS ORDERED: GLUCAGON FOR INJ 1 MG VIAL SQ PRN (22:55)
[2020-10-16] MEDS ORDERED: GLUCOSE 10 TABS/TUBE PO PRN (22:55)
[2020-10-16] MEDS ORDERED: GLUCOSE 40% GEL 15 GM TUBE PO PRN (22:55)
[2020-10-16] MEDS ORDERED: ONDANSETRON INJ 2 MG/ML 2 ML VIAL IV PRN (22:55)
[2020-10-16] MEDS ORDERED: ACETAMINOPHEN 325 MG TAB PO PRN (22:55)
[2020-10-16] MEDS ORDERED: bisacodyL 10 MG SUPP PR PRN (22:55)
[2020-10-16] MEDS ORDERED: MAGNESIUM HYDROXIDE SUSP 30 ML UDC PO PRN (22:55)
[2020-10-16] MEDS ORDERED: DEXAMETHASONE SOD INJ 10 MG/ML VIAL IV ONE (22:55)
[2020-10-16] MEDS ORDERED: CETIRIZINE HCL 10 MG TABLET PO PRN (23:11)
[2020-10-17] MEDS ORDERED: REMDESIVIR 200 MG in SODIUM CHLORIDE 0.9% 210 ML IV ONE
[2020-10-17] MEDS ORDERED: DEXAMETHASONE SOD PHOSPHATE 10 MG in SYRINGE 0 ML IV SCH
[2020-10-17] MEDS ORDERED: dexAMETHasone 6 MG in SYRINGE 0 ML IV SCH
[2020-10-17] MEDS: cefTRIAXone SODIUM 2,000 MG in DEXTROSE 5% 50 ML IV SCH ×2 (01:37→21:33)
[2020-10-17] MEDS: METOPROLOL TARTRATE 25 MG TAB PO SCH ×3 (01:37→21:28)
[2020-10-17] MEDS: SODIUM CHLORIDE 0.9% 10ML FLUSH IV SCH (02:19)
[2020-10-17] MEDS: LEVOTHYROXINE SODIUM 50 MCG TABLET PO SCH (04:54)
[2020-10-17] MEDS ORDERED: ENOXAPARIN 0.5 MG/KG SQ SCH (05:45)
[2020-10-17 06:14] LABS: Estimated Average Glucose 214 mg/dl; Hemoglobin A1C 9.1 % (4.5-5.6)
[2020-10-17 06:47] LABS: INR 1.1 (0.9-1.1); Prothrombin Time 11.4 Seconds (9.0-12.0)
--- NOTE | 2020-10-17 07:05 | XRay Report ---
XR chest 1V portable HISTORY: 75 years-old Male Dyspnea acute shortness of breath. COVID Positive. COMPARISON: CTA chest of same day TECHNIQUE: Portable AP view of the chest FINDINGS: Cardiomediastinal and hilar silhouettes are within normal limits. No pneumothorax, pleural effusion o r overt pulmonary edema. Bibasilar predominant interstitial opacities. No lobar airspace consolidatio n. Degenerative changes of the shoulders and spine. IMPRESSION: Interstitial opacities of the lung bases are suggestive of a nonspecific infectious or in flammatory pneumonitis. ACT 112: Negative or not required by law. The above report was generated using voice recognition software. It may contain grammatical, syntax o r spelling errors. Electronically signed by: Jose Montelongo M.D. 10/17/2020 7:04 AM
[2020-10-17] MEDS: ALBUTEROL HFA 8 GM INHALER INH SCH ×4 (07:26→20:36)
--- NOTE | 2020-10-17 07:31 | CT Scan Report ---
CT angio chest PE protocol CT DOSE: 439.35 mGycm HISTORY: 75 years-old Male with covid +, elevated dimer, sob. Acute shortness of breath with chest pain. COVID Positive. TECHNIQUE: Multiple CTA images of the chest were obtained after the intravenous administration of 119 ml Optiray 320. Coronal and sagittal MIPS were obtained from the axial data set and were submitted for review. All measurements were obtained according to NASCET criteria. A dose lowering technique w as utilized adhering to the principles of ALARA. COMPARISON: Chest radiograph 10/16/2020 FINDINGS: CTA: Heart is normal in size without pericardial effusion. Moderate coronary artery calcifications. Mild m ixed plaque of the thoracic aorta without aneurysm or dissection. Patency of the imaged great vessels . The pulmonary arterial tree is opacified to the level of the subsegmental branches. No filling defe cts identified to suggest thromboembolic disease. CT CHEST: Unremarkable thyroid. Prominent mediastinal and hilar lymph nodes measuring up to 9 mm. The inferior lung bases are not imaged, partially outside the [id number]. There is no pneumothorax, pleural eff usion or overt pulmonary edema. Mild tracheobronchial secretions. Subpleural dependent predominant gr oundglass and alveolar opacities are noted within the bilateral lower lobes with additional patchy brian btle subsegmental groundglass opacities noted within the right middle and bilateral upper lobes. Mild subpleural reticulation. No definite suspicious pulmonary nodules or masses. No acute process of the imaged upper abdomen. Mild gynecomastia. Unremarkable soft tissues. Degenerat demarco changes of the shoulders and spine. No acute fracture or suspicious bone lesion. IMPRESSION: 1. No evidence of pulmonary thromboembolic disease. 2. Bibasilar predominant groundglass and consolidative opacities are compatible with a nonspecific mu ltifocal infectious or inflammatory pneumonitis. 3. Prominent mediastinal and hilar lymph nodes are likely reactive. ACT 112: Negative or not required by law. The above report was generated using voice recognition software. It may contain grammatical, syntax o r spelling errors. Electronically signed by: Jose Montelongo M.D. 10/17/2020 7:30 AM
--- NOTE | 2020-10-17 08:05 | Hospitalist Progress Note ---
Date of Service October 17, 2020 Assessment & Plan (1) Pneumonia due to COVID-19 virus: Pneumonia due to COVID-19 virus with hypoxia- Decadron 6 mg IV daily. Convalescent plasma, consent obtained Remdesivir IV per protocol 5 doses over 4 days Ceftriaxone 2 g IV daily Azithromycin 500 mg IV daily will be increased to Hi Flow nasal canulae Ventolin HFA 2 puffs 4 times daily, and every 2 hours as needed (2) Hypoxia: will be supported to keep sats > 88 (3) Hyperlipidemia: Continue atorvastatin 80 mg daily (4) Hypothyroidism: Continue levothyroxine sodium 50 mcg daily (5) CAD (coronary artery disease): CAD/hypertension Continue aspirin 81 mg daily, isosorbide mononitrate extended release 120 mg daily, metoprolol tartrate 25 mg p.o. 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 glucose is under poor control, glycemic management to help tighten Placed on Accu-Cheks before meals and at bedtime with NovoLog coverage per scale Hemoglobin A1c 9.1 Admission and Anticipated Discharge Date Admission Date: October 16, 2020 Subjective this pt was transitioned to Hi Flow nasal canulae prior to my visit, he was persistently hypoxic but in mild to moderate distress, did not look toxic at this time Review of Systems Review of Systems: Mild to moderated distress and fatigue no headache, blurry or double vision no speech or swallowing issues no chest pain, pressure or palpitations feels short of breath and with non productive cough no abdominal pain, nausea or vomiting, no diarrhea no dysuria, hematuria or frequency no focal joint pain or swelling no back pain, CVA tenderness or radicular pain no bruising, bleeding or rashes no focal signs of weakness or numbness or altered sensation no complaints of anxiety or depression. Physical Exam Physical Exam: The patient appeared well nourished and normally developed. Vital signs as documented. Head exam is normocephalic atraumatic no scleral icterus Neck is without JVD, thyromegaly, or carotid bruits. Lungs are with coarse crackles at the bases bilaterally Cardiac exam, Rhythm is regular.. No murmurs, rubs or gallops. Abdominal exam reveals normal bowel sounds, soft non tender, no masses Extremities are nonedematous and both pedal pulses are present Neurologic exam is alert and oriented, no focal loss of strength or sensation Skin is without bruises or rashes Psychologically is without concerns for anxiety or depression. Results & Data Results & Data ([facility]) Vital Signs (Past 12 Hours) Vital Signs Temp Pulse Pulse Resp BP BP Pulse Ox 10/17/20 07:28 69 18 92 10/17/20 04:00 98.2 F 18 148/78 H 95 10/17/20 02:53 79 10/17/20 02:23 98.6 F 78 16 143/83 H 10/17/20 01:41 98.2 F 78 18 110/72 10/17/20 01:15 97.9 F 82 16 132/78 10/17/20 01:00 97.9 F 78 18 112/63 10/17/20 00:40 97.9 F 80 16 144/80 H 10/16/20 23:05 97.9 F 20 134/72 94 10/16/20 22:13 63 22 117/61 98 10/16/20 22:00 63 22 117/61 98 10/16/20 21:30 72 20 116/98 97 10/16/20 21:22 99.1 F 10/16/20 21:00 83 12 135/78 95 10/16/20 20:30 78 35 H 125/62 99 PG Care Time/CCT Total # of Minutes Spent Total Time Spent with Patient: Total time spent is greater than 50% in coordination of care (as documented) at patient's floor/unit and/or counseling patient: Coding Level of Care Code 44508 Subseq Hosp Care Lvl 3 Diagnoses Pneumonia due to COVID-19 virus U07.1; J12.89 Hypoxia R09.02 Hyperlipidemia E78.5 Hypothyroidism E03.9 CAD (coronary artery disease) I25.10 Associated angina: without angina Coronary Disease-Associated Artery/Lesion type: [place] artery [place] vs. 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 transplanted heart: [place] heart Qualified Code(s): I25.10 - Atherosclerotic heart disease of [place] coronary artery without angina pectoris
[2020-10-17] MEDS: ENOXAPARIN INJ 60 MG/0.6 ML SYR SQ SCH ×2 (09:02→21:27)
[2020-10-17] MEDS: DEXAMETHASONE SOD PHOSPHATE 6 MG in SYRINGE 0 ML IV SCH (09:11)
[2020-10-17] MEDS: ISOSORBIDE MONO EXTENDED REL 60 MG TABCR PO SCH (09:12)
[2020-10-17] MEDS: ASPIRIN 81 MG ECTAB PO SCH (09:12)
[2020-10-17] MEDS: ATORVASTATIN 40 MG TAB PO SCH (09:13)
[2020-10-17 09:51] LABS: Appearance Urine Clear (Clear); Bacteria Urine Automated Negative (Negative); Bilirubin Urine Negative (Negative); Blood Urine Trace (Negative); Color Urine Yellow; Glucose Urine UA 3+ (Negative); Ketones Urine 2+ (Negative); Leukocyte Esterase Urine Negative (Negative); Nitrite Urine Negative (Negative); Protein Urine 1+ (Negative); RBC Urine Automated 0-4 /hpf (0-4); Specific Gravity Urine > 1.045 (1.000-1.030); Urobilinogen Urine Negative (Negative)
[2020-10-17] MEDS: AZITHROMYCIN 500 MG in DEXTROSE 5% 250 ML IV SCH (10:22)
[2020-10-17] MEDS: INSULIN ASPART 100 UNITS/ML 3 ML PEN SC SCH ×4 (10:44→21:49)
--- NOTE | 2020-10-17 11:04 | Electrocardiogram Report ---
Test Reason : Blood Pressure : / mmHG Vent. Rate : 098 BPM Atrial Rate : 098 BPM P-R Int : 180 ms QRS Dur : 092 ms QT Int : 368 ms P-R-T Axes : 058 004 041 degrees QTc Int : 469 ms Sinus rhythm with Premature atrial complexes Low voltage QRS Borderline ECG When compared with ECG of 07-SEP-2018 09:19, Premature atrial complexes are now Present Nonspecific T wave abnormality has replaced inverted T waves in Inferior leads Confirmed by Anish Mar ([id number]) on 10/17/2020 11:04:01 AM Referred By: REFERRED SELF Confirmed By:Roe Mar
[2020-10-17] MEDS ORDERED: PHARMACY GLYCEMIC MGMT CONSULT PRN (12:15)
[2020-10-17] MEDS ORDERED: INSULIN HUMAN NPH SC ONE (12:30)
[2020-10-17] MEDS ORDERED: INSULIN HUMAN REGULAR PER UNIT 8 UNITS in SYRINGE 7.92 ML IV ONE (12:45)
--- NOTE | 2020-10-17 15:07 | Pharmacy Report ---
Pharmacy Glycemic Short Note 2 - Date of Service October 17, 2020 - Glycemic Short BSG Results (Last 24 hours): 10/16/20 10/17/20 10/17/20 19:26 07:25 07:26 Glucose 280 H POC Glucose 332 H* 308 H* 10/17/20 11:56 Glucose POC Glucose 372 H* OUTPATIENT ANTIDIABETIC REGIMEN: * Trulicity 1.5 mg SC weekly * Glimepiride 4 mg PO BID * Metformin 1 g PO BIDM * HbA1c: 9.1% (10/16/20) ASSESSMENT: * RS is a 75 year old male admitted on 10/16 with pneumonia secondary to COVID- 19 * Started on remdesivir and IV dexamethasone * No insulin orders overnight * Pharmacy consulted on 10/17 for BSG of 372 mg/dL * 40 units of NPH given (~0.4 unit/kg) x 1 to cover for dexamethasone * Novolog started with weight-based/stress of 3 dosing PLAN FOR INPATIENT GLYCEMIC CONTROL: * Hold outpatient oral diabetes medications * Basal insulin * NPH 40 units (~0.4 unit/kg) x 1 * Lantus scale HS to provide 0-20 units (see EHR for details) * Bolus insulin * NovoLog per scale ACHS or Q6hrs while NPO * Goal Range: Low 110 mg/dL - High 140 mg/dL * Correction Factor: 20 mg/dL/unit * Nutritional / Prandial insulin per carb ratio of 1 unit per 6 grams CHO consumed * Overnight checks at 0000 and 0400 with same parameters
[2020-10-17] MEDS ORDERED: INSULIN GLARGINE SOLOSTAR 100 UNITS/ML 3 ML PEN SC SCH (21:00)
[2020-10-17] MEDS: MULTIVITAMIN TAB PO SCH (21:29)
[2020-10-17] MEDS: DOCUSATE SODIUM/SENNA 50/8.6MG TAB PO SCH (21:31)
[2020-10-17] MEDS: REMDESIVIR 100 MG in SODIUM CHLORIDE 0.9% 230 ML IV SCH (23:14)
[2020-10-18] MEDS: SODIUM CHLORIDE 0.9% 10ML FLUSH IV SCH (00:31)
[2020-10-18] MEDS ORDERED: INSULIN ASPART 100 UNITS/ML 3 ML PEN SC SCH ×2 (02:00)
[2020-10-18] MEDS: LEVOTHYROXINE SODIUM 50 MCG TABLET PO SCH (06:10)
[2020-10-18] MEDS: ALBUTEROL HFA 8 GM INHALER INH SCH ×5 (07:27→23:28)
--- NOTE | 2020-10-18 08:38 | Hospitalist Progress Note ---
Date of Service October 18, 2020 Assessment & Plan (1) Pneumonia due to COVID-19 virus: Pneumonia due to COVID-19 virus with hypoxia- Decadron 6 mg IV daily. Convalescent plasma, consent obtained Remdesivir IV per protocol 5 doses over 4 days Ceftriaxone 2 g IV daily complete 7 days Azithromycin 500 mg IV daily complete 5 days continues on Hi Flow nasal canulae Ventolin HFA 2 puffs 4 times daily, and every 2 hours as needed no diarrhea, getting smell and taste back (2) Hypoxia: Acute hypoxic respiratory failure with a SaO2/FiO2 ratio of 77.5 requiring High flow O2, IV Decadron, IV Remdesivir, Convalescent plasma (3) Hyperlipidemia: Continue atorvastatin 80 mg daily (4) Hypothyroidism: Continue levothyroxine sodium 50 mcg daily (5) CAD (coronary artery disease): CAD/hypertension Continue aspirin 81 mg daily, isosorbide mononitrate extended release 120 mg daily, metoprolol tartrate 25 mg p.o. 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 glucose control has been difficult with steroids and physiologic stressors appreciate glycemic management help Placed on Accu-Cheks before meals and at bedtime with NovoLog coverage per scale Hemoglobin A1c 9.1 Admission and Anticipated Discharge Date Admission Date: October 16, 2020 Subjective Although the patient is on high flow oxygen he does not appear toxic at this time. He is somewhat dyspneic but does not complain of it when directly asked if he feels short of breath. Challenges with hyperglycemia due to steroids at this time Review of Systems Review of Systems: Mild to moderated distress and fatigue no headache, blurry or double vision no speech or swallowing issues no chest pain, pressure or palpitations feels short of breath and with non productive cough no abdominal pain, nausea or vomiting, no diarrhea no dysuria, hematuria or frequency no focal joint pain or swelling no back pain, CVA tenderness or radicular pain no bruising, bleeding or rashes no focal signs of weakness or numbness or altered sensation no complaints of anxiety or depression. Physical Exam Physical Exam: The patient appeared well nourished and normally developed. Vital signs as documented. Head exam is normocephalic atraumatic no scleral icterus Neck is without JVD, thyromegaly, or carotid bruits. Lungs are with coarse crackles at the bases bilaterally Cardiac exam, Rhythm is regular.. No murmurs, rubs or gallops. Abdominal exam reveals normal bowel sounds, soft non tender, no masses Extremities are nonedematous and both pedal pulses are present Neurologic exam is alert and oriented, no focal loss of strength or sensation Skin is without bruises or rashes Psychologically is without concerns for anxiety or depression. Results & Data Results & Data ([facility]) Vital Signs (Past 12 Hours) Vital Signs Temp Pulse Pulse Resp BP BP Pulse Ox 10/18/20 08:01 97.9 F 63 18 123/70 90 10/18/20 07:28 72 20 85 L 10/18/20 07:15 59 L 10/18/20 04:00 97.9 F 62 18 148/80 H 93 10/18/20 02:30 64 20 93 10/18/20 00:33 98.6 F 59 L 18 157/69 H 92 10/18/20 00:06 62 10/17/20 22:47 64 20 92 10/17/20 20:50 98.1 F 70 20 131/77 91 PG Care Time/CCT Total # of Minutes Spent Total Time Spent with Patient: Total time spent is greater than 50% in coordination of care (as documented) at patient's floor/unit and/or counseling patient: Coding Level of Care Code 56163 Subseq Hosp Care Lvl 3 Diagnoses Pneumonia due to COVID-19 virus U07.1; J12.89 Hypoxia R09.02 Hyperlipidemia E78.5 Hypothyroidism E03.9 CAD (coronary artery disease) I25.10 Associated angina: without angina Coronary Disease-Associated Artery/Lesion type: [place] artery [place] vs. 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 transplanted heart: [place] heart Qualified Code(s): I25.10 - Atherosclerotic heart disease of [place] coronary artery without angina pectoris
[2020-10-18] MEDS: AZITHROMYCIN 500 MG in DEXTROSE 5% 250 ML IV SCH (08:43)
[2020-10-18] MEDS: DEXAMETHASONE SOD PHOSPHATE 6 MG in SYRINGE 0 ML IV SCH (08:44)
[2020-10-18] MEDS: ISOSORBIDE MONO EXTENDED REL 60 MG TABCR PO SCH (08:45)
[2020-10-18] MEDS: METOPROLOL TARTRATE 25 MG TAB PO SCH ×2 (08:46→21:00)
[2020-10-18] MEDS: ENOXAPARIN INJ 60 MG/0.6 ML SYR SQ SCH ×2 (08:46→20:57)
[2020-10-18] MEDS: ASPIRIN 81 MG ECTAB PO SCH (08:46)
[2020-10-18] MEDS ORDERED: INSULIN HUMAN NPH SC SCH ×2 (09:00→17:00)
[2020-10-18] MEDS: INSULIN ASPART 100 UNITS/ML 3 ML PEN SC SCH ×4 (09:17→21:12)
--- NOTE | 2020-10-18 13:59 | Pharmacy Report ---
Pharmacy Glycemic Short Note 2 - Date of Service October 18, 2020 - Glycemic Short BSG Results (Last 24 hours): 10/17/20 10/17/20 10/17/20 15:03 16:59 20:48 POC Glucose 306 H* 237 H 226 H 10/18/20 10/18/20 10/18/20 02:28 07:30 11:38 POC Glucose 147 H 160 H 459 H* 10/18/20 10/18/20 10/18/20 11:40 12:06 12:08 POC Glucose 459 H* 361 H* 394 H* 10/18/20 12:09 POC Glucose 378 H* OUTPATIENT ANTIDIABETIC REGIMEN: * Trulicity 1.5 mg SC weekly * Glimepiride 4 mg PO BID * Metformin 1 g PO BIDM * HbA1c: 9.1% (10/16/20) ASSESSMENT: 10/18: * BSGs elevated yesterday, 332, 372, 237, and 226 mg/dL * Patient received 40 units of NPH, 20 units of Lantus, and 45 units of prandial/correctional (105 units total) * Fasting BSG this morning of 160 mg/dL * Pre-lunch BSG of 459 mg/dL, recheck of 378 mg/dL * Ordered one-time IV insulin bolus of 8 units (discussed with hospitalist and potassium will be reordered for tomorrow) * Will tighten Novolog further and add additional NPH scale with dinner 10/17: * RS is a 75 year old male admitted on 10/16 with pneumonia secondary to COVID- 19 * Started on remdesivir and IV dexamethasone * No insulin orders overnight * Pharmacy consulted on 10/17 for BSG of 372 mg/dL * 40 units of NPH given (~0.4 unit/kg) x 1 to cover for dexamethasone * Novolog started with weight-based/stress of 3 dosing PLAN FOR INPATIENT GLYCEMIC CONTROL: * Hold outpatient oral diabetes medications * Basal insulin - add dinnertime NPH * NPH 35 units (~0.4 unit/kg) SC daily with IV dexamethasone * Add NPH scale with dinner to provider 0-15 units (see EHR for details) * Lantus scale HS to provide 15-25 units (see EHR for details) * Bolus insulin - tighten * NovoLog per scale ACHS or Q6hrs while NPO * Goal Range: Low 110 mg/dL - High 140 mg/dL * Correction Factor: 15 mg/dL/unit * Nutritional / Prandial insulin per carb ratio of 1 unit per 5 grams CHO consumed
[2020-10-18] MEDS ORDERED: INSULIN HUMAN REGULAR PER UNIT 8 UNITS in SYRINGE 7.92 ML IV ONE (14:00)
[2020-10-18] MEDS: ATORVASTATIN 40 MG TAB PO SCH (20:59)
[2020-10-18] MEDS: DOCUSATE SODIUM/SENNA 50/8.6MG TAB PO SCH (20:59)
[2020-10-18] MEDS ORDERED: INSULIN GLARGINE SOLOSTAR 100 UNITS/ML 3 ML PEN SC SCH (21:00)
[2020-10-18] MEDS: MULTIVITAMIN TAB PO SCH (21:00)
[2020-10-19] MEDS: CARBOHYDRATES FOR HYPOGLYCEMIA PO PRN (00:07)
[2020-10-19] MEDS: cefTRIAXone SODIUM 2,000 MG in DEXTROSE 5% 50 ML IV SCH (00:08)
[2020-10-19] MEDS: REMDESIVIR 100 MG in SODIUM CHLORIDE 0.9% 230 ML IV SCH (00:08)
[2020-10-19] MEDS: SODIUM CHLORIDE 0.9% 10ML FLUSH IV SCH (01:40)
[2020-10-19] MEDS: LEVOTHYROXINE SODIUM 50 MCG TABLET PO SCH (06:18)
[2020-10-19] MEDS: ALBUTEROL HFA 8 GM INHALER INH SCH ×4 (07:34→20:33)
[2020-10-19 07:44] LABS: BUN Creatinine Ratio 35.2 (10-20); Calcium 8.1 mg/dl (8.5-10.1); Creatinine Clr Calc Pharmacy 87.4 ml/min; Est GFR (African American) 102.5; Est GFR (Non-African American) 88.5
--- NOTE | 2020-10-19 07:57 | Hospitalist Progress Note ---
Date of Service October 19, 2020 Assessment & Plan (1) Pneumonia due to COVID-19 virus: Pneumonia due to COVID-19 virus with hypoxia- Decadron 6 mg IV daily. LD 10/25 Convalescent plasma, consent obtained, administered Remdesivir IV per protocol 5 doses over 4 days Ceftriaxone 2 g IV daily complete 7 days Azithromycin 500 mg IV daily complete 5 days continues on Hi Flow nasal canulae Ventolin HFA 2 puffs 4 times daily, and every 2 hours as needed no diarrhea, getting smell and taste back (2) Hypoxia: Acute hypoxic respiratory failure requiring High flow O2, IV Decadron, IV Remdesivir, Convalescent plasma (3) Hyperlipidemia: Continue atorvastatin 80 mg daily (4) Hypothyroidism: Continue levothyroxine sodium 50 mcg daily (5) CAD (coronary artery disease): CAD/hypertension Continue aspirin 81 mg daily, isosorbide mononitrate extended release 120 mg daily, metoprolol tartrate 25 mg p.o. 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 glucose control has been difficult with steroids and physiologic stressors appreciate glycemic management help Placed on Accu-Cheks before meals and at bedtime with NovoLog coverage per scale Hemoglobin A1c 9.1 Admission and Anticipated Discharge Date Admission Date: October 16, 2020 Subjective Although the patient is on reducing high flow oxygen, continues to not appear toxic at this time. He is somewhat dyspneic but does not complain of it when directly asked if he feels short of breath. better control hyperglycemia due to steroids at this time Review of Systems Review of Systems: Mild to moderated distress and fatigue no headache, blurry or double vision no speech or swallowing issues no chest pain, pressure or palpitations feels short of breath and with non productive cough no abdominal pain, nausea or vomiting, no diarrhea no dysuria, hematuria or frequency no focal joint pain or swelling no back pain, CVA tenderness or radicular pain no bruising, bleeding or rashes no focal signs of weakness or numbness or altered sensation no complaints of anxiety or depression. Physical Exam Physical Exam: The patient appeared well nourished and normally developed. Vital signs as documented. Head exam is normocephalic atraumatic no scleral icterus Neck is without JVD, thyromegaly, or carotid bruits. Lungs are with coarse crackles at the bases bilaterally Cardiac exam, Rhythm is regular.. No murmurs, rubs or gallops. Abdominal exam reveals normal bowel sounds, soft non tender, no masses Extremities are nonedematous and both pedal pulses are present Neurologic exam is alert and oriented, no focal loss of strength or sensation Skin is without bruises or rashes Psychologically is without concerns for anxiety or depression. Results & Data Results & Data ([facility]) Vital Signs (Past 12 Hours) Vital Signs Temp Pulse Pulse Resp BP BP Pulse Ox 10/19/20 07:37 68 19 89 L 10/19/20 07:34 66 19 89 L 10/19/20 07:24 98.2 F 62 20 145/80 H 94 10/19/20 07:18 54 L 10/19/20 04:27 63 10/19/20 04:00 98.2 F 66 18 126/62 90 10/19/20 02:30 56 L 16 95 10/19/20 00:00 98.6 F 66 18 116/51 L 93 10/18/20 23:29 66 20 93 10/18/20 21:31 98.4 F 73 20 142/84 H 93 PG Care Time/CCT Total # of Minutes Spent Total Time Spent with Patient: Total time spent is greater than 50% in coordination of care (as documented) at patient's floor/unit and/or counseling patient: Coding Level of Care Code 96265 Subseq Hosp Care Lvl 3 Diagnoses Pneumonia due to COVID-19 virus U07.1; J12.89 Hypoxia R09.02 Hyperlipidemia E78.5 Hypothyroidism E03.9 CAD (coronary artery disease) I25.10 Associated angina: without angina Coronary Disease-Associated Artery/Lesion type: [place] artery [place] vs. 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 transplanted heart: [place] heart Qualified Code(s): I25.10 - Atherosclerotic heart disease of [place] coronary artery without angina pectoris
[2020-10-19] MEDS ORDERED: MAGNESIUM SULFATE / D5W 1 GM/100 ML BAG IV ONE (08:15)
[2020-10-19] MEDS ORDERED: INSULIN HUMAN NPH SC SCH ×2 (09:00)
[2020-10-19] MEDS: DEXAMETHASONE SOD PHOSPHATE 6 MG in SYRINGE 0 ML IV SCH (09:08)
[2020-10-19] MEDS: AZITHROMYCIN 500 MG in DEXTROSE 5% 250 ML IV SCH (09:08)
[2020-10-19] MEDS: ENOXAPARIN INJ 60 MG/0.6 ML SYR SQ SCH ×2 (09:13→20:20)
[2020-10-19] MEDS: ASPIRIN 81 MG ECTAB PO SCH (09:14)
[2020-10-19] MEDS: POTASSIUM CHLORIDE CRTAB 20 MEQ TABCR PO SCH ×2 (09:14→20:21)
[2020-10-19] MEDS: ISOSORBIDE MONO EXTENDED REL 60 MG TABCR PO SCH (09:15)
[2020-10-19] MEDS: METOPROLOL TARTRATE 25 MG TAB PO SCH ×2 (09:15→20:22)
[2020-10-19] MEDS: INSULIN ASPART 100 UNITS/ML 3 ML PEN SC SCH ×4 (09:44→20:54)
--- NOTE | 2020-10-19 09:49 | Pharmacy Report ---
Pharmacy Glycemic Short Note 2 - Date of Service October 19, 2020 - Glycemic Short BSG Results (Last 24 hours): 10/18/20 10/18/20 10/18/20 11:38 11:40 12:06 Glucose POC Glucose 459 H* 459 H* 361 H* 10/18/20 10/18/20 10/18/20 12:08 12:09 14:24 Glucose POC Glucose 394 H* 378 H* 418 H* 10/18/20 10/18/20 10/18/20 16:48 16:49 20:40 Glucose POC Glucose 347 H* 372 H* 181 H 10/19/20 10/19/20 10/19/20 00:04 00:21 06:52 Glucose 62 L POC Glucose 52 L* 79 10/19/20 07:52 Glucose POC Glucose 78 OUTPATIENT ANTIDIABETIC REGIMEN: * Trulicity 1.5 mg SC weekly * Glimepiride 4 mg PO BID * Metformin 1 g PO BIDM * HbA1c: 9.1% (10/16/20) ASSESSMENT: 10/19: * BSGs very poorly controlled yesterday, 160, 378, 347, 181, 52 mg/dL * Patient received 35 units of NPH, 25 units of Lantus, 8 units IV regular insulin, and 75 units of prandial/correctional (135 units total) * Hyperglycemia likely related to IV steroids and due to patient having uncovered Boost yesterday, per RN. * Fasting BSG of 78 mg/dL this morning - will decrease HS Lantus * Will increase NPH today with IV dexamethasone * Lunch BSG of 295 mg/dL -> will order one-time NPH 10 unit dose 10/18: * BSGs elevated yesterday, 332, 372, 237, and 226 mg/dL * Patient received 40 units of NPH, 20 units of Lantus, and 45 units of prandial/correctional (105 units total) * Fasting BSG this morning of 160 mg/dL * Pre-lunch BSG of 459 mg/dL, recheck of 378 mg/dL * Ordered one-time IV insulin bolus of 8 units (discussed with hospitalist and potassium will be reordered for tomorrow) * Will tighten Novolog further and add additional NPH scale with dinner 10/17: * RS is a 75 year old male admitted on 10/16 with pneumonia secondary to COVID- 19 * Started on remdesivir and IV dexamethasone * No insulin orders overnight * Pharmacy consulted on 10/17 for BSG of 372 mg/dL * 40 units of NPH given (~0.4 unit/kg) x 1 to cover for dexamethasone * Novolog started with weight-based/stress of 3 dosing PLAN FOR INPATIENT GLYCEMIC CONTROL: * Hold outpatient oral diabetes medications * Basal insulin - increase NPH, decrease Lantus * NPH 40 units SC daily with IV dexamethasone * Additional NPH 10 units SC x 1 with lunch * Lantus 20 units SC HS * Bolus insulin - tighten * NovoLog per scale ACHS or Q6hrs while NPO * Goal Range: Low 110 mg/dL - High 140 mg/dL * Correction Factor: 15 mg/dL/unit * Nutritional / Prandial insulin per carb ratio of 1 unit per 3.5 grams CHO consumed
[2020-10-19] MEDS ORDERED: INSULIN HUMAN NPH SC ONE (12:00)
[2020-10-19] MEDS: MULTIVITAMIN TAB PO SCH (20:20)
[2020-10-19] MEDS: ATORVASTATIN 40 MG TAB PO SCH (20:20)
[2020-10-19] MEDS: DOCUSATE SODIUM/SENNA 50/8.6MG TAB PO SCH (20:23)
[2020-10-19] MEDS ORDERED: INSULIN GLARGINE SOLOSTAR 100 UNITS/ML 3 ML PEN SC SCH (21:00)
[2020-10-20] MEDS: cefTRIAXone SODIUM 2,000 MG in DEXTROSE 5% 50 ML IV SCH ×2 (00:15→23:41)
[2020-10-20] MEDS: REMDESIVIR 100 MG in SODIUM CHLORIDE 0.9% 230 ML IV SCH ×2 (00:15→23:43)
[2020-10-20] MEDS: SODIUM CHLORIDE 0.9% 10ML FLUSH IV SCH (01:13)
[2020-10-20] MEDS: LEVOTHYROXINE SODIUM 50 MCG TABLET PO SCH (06:10)
[2020-10-20] MEDS: ALBUTEROL HFA 8 GM INHALER INH SCH ×4 (07:59→20:44)
[2020-10-20] MEDS ORDERED: INSULIN HUMAN NPH SC SCH ×2 (09:00)
[2020-10-20] MEDS: ENOXAPARIN INJ 60 MG/0.6 ML SYR SQ SCH ×2 (09:06→21:48)
[2020-10-20] MEDS: ISOSORBIDE MONO EXTENDED REL 60 MG TABCR PO SCH (09:07)
[2020-10-20] MEDS: ASPIRIN 81 MG ECTAB PO SCH (09:07)
[2020-10-20] MEDS: DEXAMETHASONE SOD PHOSPHATE 6 MG in SYRINGE 0 ML IV SCH (09:07)
[2020-10-20] MEDS: AZITHROMYCIN 500 MG in DEXTROSE 5% 250 ML IV SCH (09:07)
[2020-10-20] MEDS: METOPROLOL TARTRATE 25 MG TAB PO SCH ×2 (09:07→21:49)
[2020-10-20] MEDS: INSULIN ASPART 100 UNITS/ML 3 ML PEN SC SCH ×4 (09:55→22:36)
[2020-10-20] MEDS: POTASSIUM CHLORIDE CRTAB 20 MEQ TABCR PO SCH (10:58)
--- NOTE | 2020-10-20 17:43 | Hospitalist Progress Note ---
Date of Service October 20, 2020 Assessment & Plan (1) Pneumonia due to COVID-19 virus: Pneumonia due to COVID-19 virus with hypoxia- Decadron 6 mg IV daily. LD 10/25 Convalescent plasma, consent obtained, administered Remdesivir IV per protocol 5 doses over 4 days LD 10/21 Ceftriaxone 2 g IV daily complete 7 days LD 10/23 Azithromycin 500 mg IV daily complete 5 days LD 10/21 continues on Hi Flow nasal canulae Ventolin HFA 2 puffs 4 times daily, and every 2 hours as needed (2) Hypoxia: Acute hypoxic respiratory failure requiring High flow O2, IV Decadron, IV Remdesivir, Convalescent plasma (3) Hyperlipidemia: Continue atorvastatin 80 mg daily (4) Hypothyroidism: Continue levothyroxine sodium 50 mcg daily (5) CAD (coronary artery disease): CAD/hypertension Continue aspirin 81 mg daily, isosorbide mononitrate extended release 120 mg daily, metoprolol tartrate 25 mg p.o. 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 glucose control has been difficult with steroids and physiologic stressors appreciate glycemic management help Placed on Accu-Cheks before meals and at bedtime with NovoLog coverage per scale Hemoglobin A1c 9.1 Admission and Anticipated Discharge Date Admission Date: October 16, 2020 Subjective Although the patient is on reducing high flow oxygen, continues to not appear toxic at this time. He is somewhat dyspneic but does not complain of it when directly asked if he feels short of breath. he has better control hyperglycemia due to steroids at this time Review of Systems Review of Systems: Mild to moderated distress and fatigue no headache, blurry or double vision no speech or swallowing issues no chest pain, pressure or palpitations feels short of breath and with non productive cough no abdominal pain, nausea or vomiting, no diarrhea no dysuria, hematuria or frequency no focal joint pain or swelling no back pain, CVA tenderness or radicular pain no bruising, bleeding or rashes no focal signs of weakness or numbness or altered sensation no complaints of anxiety or depression. Physical Exam Physical Exam: The patient appeared well nourished and normally developed. Vital signs as documented. Head exam is normocephalic atraumatic no scleral icterus Neck is without JVD, thyromegaly, or carotid bruits. Lungs are with coarse crackles at the bases bilaterally Cardiac exam, Rhythm is regular.. No murmurs, rubs or gallops. Abdominal exam reveals normal bowel sounds, soft non tender, no masses Extremities are nonedematous and both pedal pulses are present Neurologic exam is alert and oriented, no focal loss of strength or sensation Skin is without bruises or rashes Psychologically is without concerns for anxiety or depression. Results & Data Results & Data ([facility]) Vital Signs (Past 12 Hours) Vital Signs Temp Pulse Pulse Resp BP Pulse Ox 10/20/20 16:31 98.2 F 64 18 105/56 L 94 10/20/20 16:03 62 16 91 10/20/20 16:02 62 16 91 10/20/20 15:27 67 10/20/20 12:08 75 16 96 10/20/20 11:04 99.0 F 71 22 112/65 96 10/20/20 08:15 73 18 90 10/20/20 08:06 98.4 F 58 L 20 134/75 86 L 10/20/20 08:00 66 20 85 L 10/20/20 06:59 51 L PG Care Time/CCT Total # of Minutes Spent Total Time Spent with Patient: Total time spent is greater than 50% in coordination of care (as documented) at patient's floor/unit and/or counseling patient: Coding Level of Care Code 12998 Subseq Hosp Care Lvl 3 Diagnoses Pneumonia due to COVID-19 virus U07.1; J12.89 Hypoxia R09.02 Hyperlipidemia E78.5 Hypothyroidism E03.9 CAD (coronary artery disease) I25.10 Coronary Disease-Associated Artery/Lesion type: [place] artery [place] vs. 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 transplanted heart: [place] heart Associated angina: without angina Qualified Code(s): I25.10 - Atherosclerotic heart disease of [place] coronary artery without angina pectoris
[2020-10-20] MEDS ORDERED: INSULIN GLARGINE SOLOSTAR 100 UNITS/ML 3 ML PEN SC SCH (21:00)
[2020-10-20] MEDS: DOCUSATE SODIUM/SENNA 50/8.6MG TAB PO SCH (21:51)
[2020-10-20] MEDS: MULTIVITAMIN TAB PO SCH (21:51)
[2020-10-20] MEDS: ATORVASTATIN 40 MG TAB PO SCH (21:51)
[2020-10-21] MEDS: SODIUM CHLORIDE 0.9% 10ML FLUSH IV SCH (00:52)
[2020-10-21] MEDS: CARBOHYDRATES FOR HYPOGLYCEMIA PO PRN ×2 (04:11→08:14)
[2020-10-21] MEDS: LEVOTHYROXINE SODIUM 50 MCG TABLET PO SCH (06:14)
[2020-10-21] MEDS: ENOXAPARIN INJ 60 MG/0.6 ML SYR SQ SCH ×2 (06:16→22:04)
[2020-10-21] MEDS: ALBUTEROL HFA 8 GM INHALER INH SCH ×4 (08:08→20:25)
[2020-10-21] MEDS: ISOSORBIDE MONO EXTENDED REL 60 MG TABCR PO SCH (08:39)
[2020-10-21] MEDS: ASPIRIN 81 MG ECTAB PO SCH (08:40)
[2020-10-21] MEDS: DEXAMETHASONE SOD PHOSPHATE 6 MG in SYRINGE 0 ML IV SCH (08:40)
[2020-10-21] MEDS: AZITHROMYCIN 500 MG in DEXTROSE 5% 250 ML IV SCH (08:41)
[2020-10-21] MEDS: METOPROLOL TARTRATE 25 MG TAB PO SCH ×2 (08:41→22:06)
[2020-10-21] MEDS ORDERED: INSULIN HUMAN NPH SC SCH (09:00)
--- NOTE | 2020-10-21 09:19 | Pharmacy Report ---
Pharmacy Glycemic Short Note 2 - Date of Service October 21, 2020 - Glycemic Short BSG Results (Last 24 hours): 10/20/20 10/20/20 10/20/20 11:24 16:37 21:46 POC Glucose 294 H 203 H 247 H 10/21/20 10/21/20 10/21/20 04:05 04:07 04:20 POC Glucose 52 L* 59 L* 70 10/21/20 10/21/20 08:06 08:34 POC Glucose 55 L* 138 H OUTPATIENT ANTIDIABETIC REGIMEN: * Trulicity 1.5 mg SC weekly * Glimepiride 4 mg PO BID * Metformin 1 g PO BIDM * HbA1c: 9.1% (10/16/20) ASSESSMENT: 10/21: * BSGs still elevated yesterday secondary to acute illness/IV steroids (70, 294, 203, and 247 mg/dL) * Patient received 40 units of NPH, 15 units of Lantus, and 76 units of prandial/correctional * Fasting BSG of 55 mg/dL this morning * Patient would prefer to hold basal insulin in light of this hypoglycemia * Discussed with hospitalist and will restart patient's home oral medications (in place of basal) in anticipation for discharge in next couple of days * Continue Novolog 10/19: * BSGs very poorly controlled yesterday, 160, 378, 347, 181, 52 mg/dL * Patient received 35 units of NPH, 25 units of Lantus, 8 units IV regular insulin, and 75 units of prandial/correctional (135 units total) * Hyperglycemia likely related to IV steroids and due to patient having uncovered Boost yesterday, per RN. * Fasting BSG of 78 mg/dL this morning - will decrease HS Lantus * Will increase NPH today with IV dexamethasone * Lunch BSG of 295 mg/dL -> will order one-time NPH 10 unit dose 10/18: * BSGs elevated yesterday, 332, 372, 237, and 226 mg/dL * Patient received 40 units of NPH, 20 units of Lantus, and 45 units of pra ndial/correctional (105 units total) * Fasting BSG this morning of 160 mg/dL * Pre-lunch BSG of 459 mg/dL, recheck of 378 mg/dL * Ordered one-time IV insulin bolus of 8 units (discussed with hospitalist and potassium will be reordered for tomorrow) * Will tighten Novolog further and add additional NPH scale with dinner 10/17: * RS is a 75 year old male admitted on 10/16 with pneumonia secondary to COVID- 19 * Started on remdesivir and IV dexamethasone * No insulin orders overnight * Pharmacy consulted on 10/17 for BSG of 372 mg/dL * 40 units of NPH given (~0.4 unit/kg) x 1 to cover for dexamethasone * Novolog started with weight-based/stress of 3 dosing PLAN FOR INPATIENT GLYCEMIC CONTROL: * Start patient's home oral medications * Metformin 1 g PO BIDM starting tonight with dinner * Glimepiride 4 mg PO BIDM starting tonight with dinner * Basal insulin * NPH 35 units SC daily with IV dexamethasone today * Patient would prefer to not have ongoing basal insulin given hypoglycemia * Bolus insulin * NovoLog per scale ACHS or Q6hrs while NPO * Goal Range: Low 110 mg/dL - High 140 mg/dL * Correction Factor: 15 mg/dL/unit * Nutritional / Prandial insulin per carb ratio of 1 unit per 3 grams CHO consumed
[2020-10-21] MEDS: INSULIN ASPART 100 UNITS/ML 3 ML PEN SC SCH ×4 (09:46→23:27)
--- NOTE | 2020-10-21 15:52 | Hospitalist Progress Note ---
Date of Service October 21, 2020 Assessment & Plan (1) Pneumonia due to COVID-19 virus: Pneumonia due to COVID-19 virus with hypoxia- Decadron 6 mg IV daily. LD 10/25 Convalescent plasma, consent obtained, administered Remdesivir IV per protocol 5 doses over 4 days LD 10/21 Ceftriaxone 2 g IV daily complete 7 days LD 10/23 Azithromycin 500 mg IV daily complete 5 days LD 10/21 reduced to nc but at 6 liters Ventolin HFA 2 puffs 4 times daily, and every 2 hours as needed (2) Hypoxia: Acute hypoxic respiratory failure requiring High flow O2, IV Decadron, IV Remdesivir, Convalescent plasma (3) Hyperlipidemia: Continue atorvastatin 80 mg daily (4) Hypothyroidism: Continue levothyroxine sodium 50 mcg daily (5) CAD (coronary artery disease): CAD/hypertension Continue aspirin 81 mg daily, isosorbide mononitrate extended release 120 mg daily, metoprolol tartrate 25 mg p.o. 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 glucose control has been difficult with steroids and physiologic stressors appreciate glycemic management help Placed on Accu-Cheks before meals and at bedtime with NovoLog coverage per scale Hemoglobin A1c 9.1 Admission and Anticipated Discharge Date Admission Date: October 16, 2020 Subjective Although the patient is on reducing oxygen, able to graduate to [place] today, continues to not appear toxic at this time. He is no longer c/o dyspnea he had some hypoglycemia and wants to stop the nph insulin Review of Systems Review of Systems: Mild to moderated distress and fatigue no headache, blurry or double vision no speech or swallowing issues no chest pain, pressure or palpitations feels short of breath and with non productive cough no abdominal pain, nausea or vomiting, no diarrhea no dysuria, hematuria or frequency no focal joint pain or swelling no back pain, CVA tenderness or radicular pain no bruising, bleeding or rashes no focal signs of weakness or numbness or altered sensation no complaints of anxiety or depression. Physical Exam Physical Exam: The patient appeared well nourished and normally developed. Vital signs as documented. Head exam is normocephalic atraumatic no scleral icterus Neck is without JVD, thyromegaly, or carotid bruits. Lungs are with coarse crackles at the bases bilaterally Cardiac exam, Rhythm is regular.. No murmurs, rubs or gallops. Abdominal exam reveals normal bowel sounds, soft non tender, no masses Extremities are nonedematous and both pedal pulses are present Neurologic exam is alert and oriented, no focal loss of strength or sensation Skin is without bruises or rashes Psychologically is without concerns for anxiety or depression. Results & Data Results & Data ([facility]) Vital Signs (Past 12 Hours) Vital Signs Temp Pulse Resp BP Pulse Ox 10/21/20 15:36 73 18 94 10/21/20 15:17 98.1 F 69 18 125/69 91 10/21/20 11:15 98.1 F 76 18 118/67 92 10/21/20 11:05 79 18 94 10/21/20 08:52 77 18 129/63 90 10/21/20 08:10 72 19 90 10/21/20 04:00 98.6 F 54 L 16 138/74 93 PG Care Time/CCT Total # of Minutes Spent Total Time Spent with Patient: Total time spent is greater than 50% in coordination of care (as documented) at patient's floor/unit and/or counseling patient: Coding Level of Care Code 09059 Subseq Hosp Care Lvl 3 Diagnoses Pneumonia due to COVID-19 virus U07.1; J12.89 Hypoxia R09.02 Hyperlipidemia E78.5 Hypothyroidism E03.9 CAD (coronary artery disease) I25.10 Coronary Disease-Associated Artery/Lesion type: [place] artery [place] vs. 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 transplanted heart: [place] heart Associated angina: without angina Qualified Code(s): I25.10 - Atherosclerotic heart disease of [place] coronary artery without angina pectoris
[2020-10-21] MEDS ORDERED: GLIMEPIRIDE 2 MG TAB PO SCH (17:00)
[2020-10-21] MEDS ORDERED: metFORMIN HCL 500 MG TAB PO SCH (17:00)
[2020-10-21] MEDS: ATORVASTATIN 40 MG TAB PO SCH (22:05)
[2020-10-21] MEDS: DOCUSATE SODIUM/SENNA 50/8.6MG TAB PO SCH (22:07)
[2020-10-21] MEDS: MULTIVITAMIN TAB PO SCH (22:07)
[2020-10-21] MEDS: cefTRIAXone SODIUM 2,000 MG in DEXTROSE 5% 50 ML IV SCH (23:58)
[2020-10-22] MEDS ORDERED: INSULIN ASPART 100 UNITS/ML 3 ML PEN SC ONE (02:00)
[2020-10-22] MEDS: CARBOHYDRATES FOR HYPOGLYCEMIA PO PRN (04:37)
--- NOTE | 2020-10-22 17:20 | Discharge Summary ---
Date of Service October 22, 2020 Admission HPI Per Admitting Provider The patient is a 75-year-old male with a past medical history including basal cell carcinoma, diabetes mellitus with retinopathy, angina class II, hyperlipidemia, hypothyroidism, peripheral neuropathy, postural dizziness, CAD and hyponatremia. He presents as noted above to the ED at the insistence of family and . Work-up in the emergency department included laboratories: Sodium 120, glucose 280, AST 53, albumin 3.1, WBC 11.0. COVID-19 testing was positive. Chest x-ray was negative. D-dimer was elevated at 1640. Patient's pulse ox was noted initially to be 82% on room air Principal Diagnosis Pneumonia due to COVID-19 Uncontrolled diabetes secondary to steroid use Discharge Exam The patient appeared well Vital signs as documented. Lungs are with some residual basilar crackles patient requiring 3 L of oxygen for discharge home Cardiac exam, Rhythm is regular.. No murmurs, rubs or gallops. Abdominal exam reveals normal bowel sounds, soft non tender, no masses Extremities are nonedematous and both pedal pulses are normal. Neurologic exam is alert and oriented, no focal loss of strength or sensation Skin is without bruises or rashes Psychologically is without concerns for anxiety or depression. Discharge Data Allergies Allergy/AdvReac Type Severity Reaction Status Date / Time peanut Allergy Mild THROAT Verified 09/29/20 09:48 SCRATCHY,SWELLING Consultations 10/16/20 20:20 ED Decision to Admit Stat 10/16/20 22:55 Consult Case Management - Discharge Planning Routine Ordered Studies 10/16/20 21:55 CT angio chest PE protocol Urgent Diabetes Follow up Diabetes Follow-up Needed for HgbA1c >9% Hospital Course (1) Pneumonia due to COVID-19 virus: Pneumonia due to COVID-19 virus with hypoxia- Decadron 6 mg IV daily. LD 10/25 Convalescent plasma, consent obtained, administered Remdesivir IV per protocol 5 doses over 4 days LD 10/21 Ceftriaxone 2 g IV daily complete 5 days LD 10/21 Azithromycin 500 mg IV daily complete 5 days LD 10/21 reduced to nc but at 3 liters (2) Hypoxia: Acute hypoxic respiratory failure requiring High flow O2, IV Decadron, IV Remdesivir, Convalescent plasma 12 improve he will be discharged on nasal cannula oxygen he actually looks remarkably well the day of discharge I likely expect him to come off his oxygen in a short period of time (3) Hyperlipidemia: Continue atorvastatin 80 mg daily (4) Hypothyroidism: Continue levothyroxine sodium 50 mcg daily (5) CAD (coronary artery disease): CAD/hypertension Continue aspirin 81 mg daily, isosorbide mononitrate extended release 120 mg daily, metoprolol tartrate 25 mg p.o. twice daily and nitroglycerin sublingual as as needed (6) Uncontrolled type 2 diabetes mellitus with retinopathy: Resume Trulicity, glimepiride and metformin. glucose control has been difficult with steroids and physiologic stressors appreciate glycemic management help Hemoglobin A1c 9.1 Total Time Total Time Spent Total Time Spent (In Minutes): It required greater than 30 minutes to prepare this patient for discharge Discharge Plan Discharge Items Reason For Visit: PNEUMONIA DUE TO COVID-19 WITH HYPOXIA Medications and DC Order Prescriptions: No Action metoprolol tartrate 50 mg tablet 25 mg PO BID Qty: 90 RF: 3 metformin 500 mg tablet 1,000 mg PO BID Qty: 360 RF: 3 glimepiride 4 mg tablet 4 mg PO BID Qty: 180 RF: 3 atorvastatin 80 mg tablet 80 mg PO HS Qty: 90 RF: 3 isosorbide mononitrate 120 mg tablet extended release 24 hr 120 mg PO QAM Qty: 90 RF: 3 levothyroxine 50 mcg tablet 50 mcg PO QAM Qty: 90 RF: 3 multivitamin [Multiple Vitamins] tablet 1 tab PO QPM RF: 0 nitroglycerin 0.4 mg tablet, sublingual 0.4 mg SL DIRECTED PRN (Reason: Chest Pain) RF: 0 ascorbate calcium (vitamin C) 500 mg tablet 500 mg PO QPM RF: 0 Zyrtec 10 mg Tablet,Disintegrating 10 mg PO DIRECTED PRN (Reason: Allergy Symptoms) RF: 0 Trulicity 1.5 mg/0.5 mL pen injector 1.5 mg SQ WK RF: 0 aspirin [Aspirin Low Dose] 81 mg Tablet,Delayed Release (Dr/Ec) 81 mg PO QAM RF: 0 Admission Data Admit Date/Time: 10/16/20 21:49 Attending Provider: Joaquin Sanchez Admit Provider: Feroz Anderson Primary Care Provider: Steve Vidal III Other Providers: Feroz Anderson Coding Level of Care Code D/C Day Management >30 mins Diagnoses Pneumonia due to COVID-19 virus U07.1; J12.89 Hypoxia R09.02 Hyperlipidemia E78.5 Hypothyroidism E03.9 CAD (coronary artery disease) I25.10 Coronary Disease-Associated Artery/Lesion type: grayling artery [place] vs. transplanted heart: grayling heart Associated angina: without angina Uncontrolled type 2 diabetes mellitus with retinopathy E11.319; E11.65
== END 2020-10-22 15:45 | disposition home or self-care (01) | DRG 177 ==
LOC: ED 18:07 → 2N 21:49 → SUATTDRO 21:49 → 2N 22:13

== ENCOUNTER 2025-03-08 09:21 | Observation (INO) ==
--- NOTE | 2025-03-08 09:31 | Emergency Department Note ---
Impression & Plan Chest pain, exertional, History of coronary artery disease, Fatigue, Anemia ED Provider Note NAME: HANY CASTELLANO AGE: 79 SEX: M : 1945 ARRIVES VIA: Walk-In INFORMANT: Patient, family member ED PROVIDER(S): Edide Momin MD CHIEF COMPLAINT: Exertional chest pain/fatigue MEDICAL DECISION MAKING: Patient presents due to concern for additional chest pain and associated fatigue. IV was established and blood work was obtained along with an EKG. Patient did not take his morning medications but does take Plavix daily. No active chest pain at the bedside. Patient's blood work shows a normal white count hemoglobin of 12.2 which is chronic and stable. Platelet count is unremarkable. Kidney function unremarkable. Blood sugar 170. Initial troponin is undetectable. EKG without obvious STEMI and the chest x-ray does not show any acute findings. Given the patient's symptoms as well as referred by cardiology do believe the patient would benefit from further testing and treatment. I did speak with the on-call hospitalist service Dr. Rod and the patient was admitted to the medicine service. I did inform the patient the findings and he was comfortable with plan of care. No active chest pain. Discussion w/ other healthcare providers: Dr. Rod inpatient medicine service Prior /Outside records reviewed: None Differential diagnosis: Cardiac ischemia, aortic dissection, pulmonary embolism, pneumothorax, pneumonia, pericarditis, myocarditis, GERD, cholecystitis, pancreatitis, musculoskeletal, as well as other pathologies were considered. Diagnostics, as interpreted by me: ECG: Sinus with first-degree AV block, rate of 61 prolonged TN, normal QRS duration, no obvious STEMI. Cardiac monitoring: An order was placed for continuous cardiac monitoring. The monitor shows a rate of 62 with sinus rhythm. Patient was placed on pulse oximetry Medical decision rules: Heart score Imaging studies: I informally interpreted the patient's chest x-ray does not show obvious pneumonia or pneumothorax with formal report to follow. HPI: Patient presents due to concern for chest pain and fatigability. The patient states that he developed symptoms over the weekend. He states that he was doing some leaf raking and what he described as some "minor nonstressful work." He states that he developed some chest pain in the upper chest that was dull and nonradiating. He did not have any nausea or vomiting and no diaphoresis but did feel "queasy." He states that he does felt more fatigued and needed to rest every time. He states that this is similar to when he required prior stenting which occurred in 2007. He does follow with Dr. Laguerre call their office this morning who referred him here. Patient denies any cough or fever but states that he did have a flulike illness 2 weekends ago but he seemed to feel much improved. He denies any leg swelling or calf pain no history of DVT or PE no recent plane car plane travel no recent surgeries procedures or hospitalizations. PAST MEDICAL HISTORY: See Below PAST SURGICAL HISTORY: See Below SOCIAL HISTORY: See Below HOME MEDICATIONS: See Below ALLERGIES: See Below VITALS: See Below PHYSICAL EXAMINATION: GENERAL: NAD, non-toxic. EYE EXAM: Normal conjunctiva. PERRL, no anisocoria and EOM's grossly intact w/o pain. OROPHARYNX: Moist mucus membranes, grossly normal dentition. NECK: Trachea midline, no stridor. Supple, no nuchal rigidity, no adenopathy, non-tender. No signs of meningismus. FROM of the neck with good chin to chest and neck extension. LUNGS: Clear to auscultation. Normal chest wall mechanics. HEART: NSR, no MRG. ABDOMEN: Abdomen soft, non-tender, no masses, no rebound or guarding. BACK: No CVA TTP. SKIN: No rashes and no bruising. UPPER EXTREMITIES: Upper extremities are grossly normal. LOWER EXTREMITIES: Grossly normal, no edema. Negative Homans' sign bilaterally. NEURO EXAM: A&O x3, cranial nerves II-XII grossly intact, normal speech, moves all 4 extremities. Past Med/Surg History Problem List (Updated 03/08/25 @ 17:06 by Eddie Momin MD) Anemia (Acute) Fatigue (Acute) History of coronary artery disease (Acute) Chest pain, exertional (Acute) Chest pain Anemia (Acute) Balance problems (Chronic) URI (upper respiratory infection) (Acute) History of colon polyps CAD (coronary artery disease) (Chronic) Hyponatremia 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) Postural dizziness (Acute) Peripheral neuropathy (Chronic) Hypothyroidism (Chronic) Hyperlipidemia (Chronic) Angina, class II (Acute) Allergic rhinitis (Acute) Tubular adenoma of colon (~06/2019) x3 colonoscopy 06/2019 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) History of basal cell carcinoma History of COVID-19 Internal derangement of shoulder Rotator cuff tear, left (Chronic) Anemia Antiplatelet or antithrombotic long-term use Medical History Fatigue Exertional angina Hypoxia Pneumonia due to COVID-19 virus DX'D 10/16/20 [id number] SYMPTOMS RESOLVED Hypoxia Pneumonia due to COVID-19 virus Arthritis Hyperlipidemia History of EKG ECG 07-SEP-2018 showed normal sinus rhythm (78) with normal ECG compared with ECG of 03-MAY-2007 07:16, Inverted T waves have replaced nonspecific T wave abnormality in Inferior leads T wave amplitude has decreased in Anterior leads Hypothyroid CAD (coronary artery disease) S/p 1 stent in 10/2008-F/U DR ADRYAN LOVETT Diabetes TYPE 2 Surgical History History of colonoscopy (06/2019) 3 tubular adenomas, recheck 5 years, Dr. Smith S/P Mohs surgery for basal cell carcinoma History of coronary artery stent placement History of cardiac cath 2007 1 STENT History of open reduction and internal fixation (ORIF) procedure RIGHT [id number] History of ankle surgery Right ankle, screws placed, 1970s History of intravascular stent placement CARDIAC Family History Mother Diabetes Uncle Myocardial infarction Denies family history of Ovarian cancer Prostate cancer Breast cancer Colorectal cancer Social History Smoking Status: Former smoker Tobacco Type: Cigarettes Age Started Using Tobacco: 18; Age Quit Using Tobacco: 36; packs per day: 0.5; Cigarettes Per Day: <10; Second Hand Exposure: No; Do You Dip or Chew Tobacco: No; Hx Alcohol Use: Yes Alcohol type: beer Alcohol Intake Frequency: Monthly or Less Hx Substance Use: No Preferred Language: Indonesian Communication Ability: Effective Visual Impairment: No Limitations Hearing Ability: Normal Reel Stripper Required: No Beliefs That Will Affect Care: None marital status: Current Living Situation: Spouse Current Living Situation Comment: lives at home with current occupational status: retired current occupation: had his own water treatment business Feels Safe at Home: Yes Childhood Exposure to Second-Hand Smoke: Yes Diet: regular caffeine: Yes (coffee) during the past year weight has: remained stable Dental Care, Regularly: Yes Physical Activity Frequency: Daily Seatbelt Use: always Sunscreen Use: No Assistive Devices: Denture - Upper and Denture - Lower Allergies Allergies Allergy/AdvReac Type Severity Reaction Status Date / Time bacitracin Allergy Severe rash Verified 03/08/25 11:35 [From Neosporin ([id number])] neomycin Allergy Severe rash Verified 03/08/25 11:35 [From Neosporin ([id number])] polymyxin B Allergy Severe rash Verified 03/08/25 11:35 [From Neosporin ([id number])] peanut AdvReac Intermediate THROAT Verified 03/08/25 11:35 SCRATCHY,SWELLING Home Meds Home Medications Medication Instructions Recorded Confirmed ascorbate calcium (vitamin C) 500 500 mg PO QPM 06/19/19 03/08/25 mg tablet multivitamin (Multiple Vitamins 1 tab PO QPM 06/19/19 03/08/25 tablet) nitroglycerin 0.4 mg sublingual 0.4 mg sublingual DIRECTED PRN 06/19/19 03/08/25 tablet Chest Pain cetirizine 10 mg tablet (Zyrtec) 10 mg PO DAILY PRN Congestion 11/22/22 03/08/25 Previous Rx's Medication Instructions Recorded clopidogrel 75 mg tablet 75 mg PO DAILY #90 tabs 07/01/24 atorvastatin 80 mg tablet 80 mg PO HS #90 tabs 08/03/24 dulaglutide 3 mg/0.5 mL 3 mg (0.5 mL) subcut ONCE #12 08/03/24 subcutaneous pen injector syringes ([facility]) glimepiride 4 mg tablet 4 mg PO QAM 90 days #90 tabs 08/03/24 metformin 500 mg tablet 1,000 mg (2 x 500 mg) PO BID #360 08/03/24 tabs blood sugar diagnostic (OneTouch #100 strips 09/03/24 Ultra Test strips) levothyroxine 50 mcg tablet 50 mcg PO QAM #90 tabs 01/25/25 isosorbide mononitrate 120 mg 180 mg (1.5 x 120 mg) PO QAM #135 02/17/25 tablet,extended release 24 hr tabs metoprolol tartrate 50 mg tablet 25 mg (1/2 x 50 mg) PO BID #90 tabs 02/17/25 Results & Data (ED) Vital Signs Vital Signs - 24 hr 03/08/25 09:23 03/08/25 09:31 03/08/25 09:31 Temperature 36.1 C L Temperature Source Temporal Artery Scan Pulse Rate 65 Pulse Rhythm Regular Pulse Strength Normal Respiratory Rate 18 Respiratory Effort / Characteristics Non-Labored Respiratory Depth Normal Respiratory Pattern Regular Blood Pressure 150/73 H Blood Pressure Mean 98 Blood Pressure Position Sitting Pulse Oximetry 97 99 99 Oxygen Delivery Method Room Air Room Air Sepsis Recent Fever Within 48 Hours No Sepsis New/Unexplained Change in Mental Status N/A Sepsis Action Taken by Nursing No Action Required 03/08/25 10:16 Temperature Temperature Source Pulse Rate 58 L Pulse Rhythm Pulse Strength Respiratory Rate Respiratory Effort / Characteristics Respiratory Depth Respiratory Pattern Blood Pressure Blood Pressure Mean Blood Pressure Position Pulse Oximetry Oxygen Delivery Method Sepsis Recent Fever Within 48 Hours Sepsis New/Unexplained Change in Mental Status Sepsis Action Taken by [facility] Medications Current Medication List: was personally reviewed by me Laboratory Data Attestation: I reviewed the patient's lab results. 03/08/25 09:51 03/08/25 09:51 Lab Results 03/08/25 Range/Units 09:51 WBC 8.10 (4.8-10.8) K/ul RBC 4.12 L (4.70-6.10) M/uL Hgb 12.2 L (14.0-18.0) g/dl Hct 37.2 L (42.0-52.0) % MCV 90.3 (80.0-100.0) fL MCH 29.6 (25.0-34.0) pg MCHC 32.8 (32.0-36.0) g/dL RDW Std Deviation 44.4 (36.4-46.3) fL RDW Coeff of Shaheed 13.4 (11.5-14.5) % Plt Count 351 (130-400) K/uL MPV 9.7 (9.4-12.4) fL Immature Gran % (Auto) 0.9 % Neut % (Auto) 55.4 % Lymph % (Auto) 35.2 % Towns % (Auto) 6.7 % Eos % (Auto) 1.4 % Baso % (Auto) 0.4 % Neut # (Auto) 4.50 (1.40-6.50) K/uL Lymph # (Auto) 2.85 (1.20-3.40) K/uL Towns # (Auto) 0.54 (0.11-0.59) K/uL Eos # (Auto) 0.11 (0.00-0.50) K/uL Baso # (Auto) 0.03 (0.00-0.20) K/uL Immature Gran # (Auto) 0.07 (0.01-0.20) K/uL Sodium 135 L (136-145) mmol/L Potassium 4.2 (3.5-5.1) mmol/L Chloride 98 (98-107) mmol/L Carbon Dioxide 32 (21-32) mmol/L Anion Gap 5 (3-11) BUN 18 (6-23) mg/dl Creatinine 0.86 (0.6-1.4) mg/dl Est Cr Clr Drug Dosing 73.1 ml/min eGFR 88.63 BUN/Creatinine Ratio 20.9 H (10-20) Glucose 170 H (70-99(Fasting)) mg/dl Calcium 9.9 (8.6-10.3) mg/dl Total Bilirubin 0.8 (0.2-1.0) mg/dl AST 27 (13-39) U/L ALT 18 (7-52) U/L Alkaline Phosphatase 33 L (34-104) U/L Troponin I High Sens < 2.3 (0-20) pg/ml Total Protein 7.9 (6.0-8.3) gm/dl Albumin 4.5 (3.4-5.0) gm/dl Globulin 3.4 (2.5-4.0) gm/dl Albumin/Globulin Ratio 1.3 (0.9-2) Lipase 8 L (11-82) U/L Administered Medications Insulin Aspart (Insulin Aspart Per Unit Charge) 0 units SC ACHS [facility] Stop: 04/07/25 13:14 Last Admin: 03/08/25 14:28 Dose: Not Given Documented By: AEM Isosorbide Mononitrate (Isosorbide Towns Extended Rel 60 Mg Tabcr) 180 mg PO QAM [facility] Stop: 04/07/25 11:44 Last Admin: 03/08/25 12:41 Dose: 180 mg Documented By: AEM Discontinued Medications Clopidogrel Bisulfate (Clopidogrel Bisulfate 75 Mg Tab) 75 mg PO NOW ONE Stop: 03/08/25 11:32 Last Admin: 03/08/25 13:15 Dose: 75 mg Documented By: AEM Imaging Data Radiologist's Impression: Chest X-Ray 03/08/25 09:31 XR chest 1V portable CLINICAL HISTORY: Chest pain, nonspecific COMPARISON STUDY: 10/16/2020 FINDINGS: Heart size and pulmonary vasculature are normal. There is no consolidation or pleural effusion. No pneumothorax. Stable minimal reticular opacity left lung base, likely scarring or atelectasis. IMPRESSION: No acute findings seen. ACT 112: Negative or not required by law. Electronically signed by: Travon White M.D. 03/08/2025 10:08 AM Discharge Plan Visit Data Chief Complaint: Chest Pain Stated Complaint: CHEST PAIN, DOCTOR REFERED ED Provider: Eddie Mmoin Discharge Problem: Chest pain, exertional, History of coronary artery disease, Fatigue, Anemia Patient Disposition: Admitted As Inpatient Discharge Instructions Interventions: ED Discharge Assessment Last Done: 03/08/25 11:37 Discharge Problem: Fatigue Qualifiers: Fatigue type: due to excessive exertion Encounter type: initial encounter Q ualified Code(s): T73.3XXA - Exhaustion due to excessive exertion, initial encounter Anemia Qualifiers: Anemia type: unspecified type Qualified Code(s): D64.9 - Anemia, unspecified
[2025-03-08 10:09] LABS: Basophils # (auto) 0.03 K/uL (0.00-0.20); Basophils % (auto) 0.4 %; Eosinophils # (auto) 0.11 K/uL (0.00-0.50); Eosinophils % (auto) 1.4 %; Hematocrit (blood only) 37.2 % (42.0-52.0); Hemoglobin 12.2 g/dl (14.0-18.0); Immature Granulocytes # (auto) 0.07 K/uL (0.01-0.20); Immature Granulocytes % (auto) 0.9 %; Lymphocytes # (auto) 2.85 K/uL (1.20-3.40); Lymphocytes % (auto) 35.2 %; Mean Corpuscular Hemoglobin 29.6 pg (25.0-34.0); Mean Corpuscular Hgb Conc 32.8 g/dL (32.0-36.0); Mean Corpuscular Volume 90.3 fL (80.0-100.0); Mean Platelet Volume 9.7 fL (9.4-12.4); Monocytes # (auto) 0.54 K/uL (0.11-0.59); Monocytes % (auto) 6.7 %; Neutrophils % (auto) 55.4 %; Platelet Count 351 K/uL (130-400); RDW Coefficient of Variation 13.4 % (11.5-14.5); RDW Standard Deviation 44.4 fL (36.4-46.3); Red Blood Count 4.12 M/uL (4.70-6.10)
--- NOTE | 2025-03-08 10:10 | XRay Report ---
XR chest 1V portable CLINICAL HISTORY: Chest pain, nonspecific COMPARISON STUDY: 10/16/2020 FINDINGS: Heart size and pulmonary vasculature are normal. There is no consolidation or pleural effus ion. No pneumothorax. Stable minimal reticular opacity left lung base, likely scarring or atelectasis . IMPRESSION: No acute findings seen. ACT 112: Negative or not required by law. Electronically signed by: Travon White M.D. 03/08/2025 10:08 AM
[2025-03-08 10:26] LABS: Alanine Aminotransferase 18 U/L (7-52); Albumin Globulin Ratio 1.3 (0.9-2); Albumin Level 4.5 gm/dl (3.4-5.0); Alkaline Phosphatase 33 U/L (34-104); Anion Gap 5 (3-11); Aspartate Aminotransferase 27 U/L (13-39); BUN Creatinine Ratio 20.9 (10-20); Bilirubin,Total 0.8 mg/dl (0.2-1.0); Blood Urea Nitrogen 18 mg/dl (6-23); Calcium 9.9 mg/dl (8.6-10.3); Carbon Dioxide 32 mmol/L (21-32); Chloride 98 mmol/L (98-107); Creatinine Clr Calc Pharmacy 73.1 ml/min; Globulin 3.4 gm/dl (2.5-4.0); Glucose 170 mg/dl (70-99(Fasting)); Lipase 8 U/L (11-82); Potassium 4.2 mmol/L (3.5-5.1); Sodium 135 mmol/L (136-145); Total Protein 7.9 gm/dl (6.0-8.3)
[2025-03-08 10:32] LABS: Troponin I High Sensitivity < 2.3 pg/ml (0-20)
--- NOTE | 2025-03-08 11:25 | History & Physical Report ---
Date of Service March 08, 2025 Assessment & Plan (1) CAD (coronary artery disease): (2) Chest pain: (3) Diabetes: Plan This is a 79 year old gentleman with past medical history of Type 2 diabetes, hypothyroidism, angina, anemia, and allergic rhinitis who presented to the ED on 03/08 with chest pain. #CAD/Chest pain Recently seen by cardiology 12/2024 at which his cardiac status was unchanged. Patient has a history of cardiac stent placement in 2007. Stress echo 03/25/2024: Negative exercise stress echo. Resting echo with normal biventricular systolic function, moderate left ventricular hypertrophy and no significant valvular abnormalities. CBC (hgb @ baseline) /BMP stable (Na @ baseline) Troponin negative, repeat every 6 hours Chest x-ray negative Echocardiogram ordered EKG as needed if chest pain reoccurs Continue Plavix, isosorbide mononitrate, metoprolol tartrate, atorvastatin. AM CBC/BMP #Type 2 Diabetes Most recent A1c 12/2024: 8.1% On Trulicity, glimepiride, metformin outpatienthold while inpatient Sliding scale coverage Chronic conditions: Hypothyroidism: Levothyroxine, TSH 01/2024 WNL, repeat in AM DVT prophylaxis: SCD's. Code: full If patient continues to be without chest pain and workup comes back negative, anticipate discharge home tomorrow, 03/09. Case discussed with Dr. Rod at time of admission. History of Present Illness Primary Care Provider: Johnnie Balbuena, This is a 79 year old gentleman with past medical history of Type 2 diabetes, hypothyroidism, angina, anemia, and allergic rhinitis who presented to the ED on 03/08 with chest pain. The patient was seen and examined this morning with his . Patient states that on 03/06 he started to develop exertional chest pain. He reports that he had a few episodes of this recently. He states that the first MS occurred he did experience some nausea associated with it. Since then he states that he has not felt right. He admits to feeling more fatigued than usual. He states that he does have a prescription of nitro as needed for chest pain but believes that he threw this away because he has not needed it in so long. This morning he did not take his morning medications prior to coming to the ER. He had called his assignment clerk who recommended he report here. He denies any cough or shortness of breath. He denies any indigestion. He states his appetite has been okay and he ate a large Easter dinner yesterday. He denies any lower extremity edema. Denies any back pain. Denies any urinary symptoms. Code discussion took place with the patient at time of admission and he is a full code. While in the emergency department, patient had a stable CBC and BMP. His troponin was negative. He had a chest x-ray that was negative. It was then recommended that he be admitted for further observation. Allergies Allergy/AdvReac Type Severity Reaction Status Date / Time bacitracin Allergy Severe rash Verified 03/08/25 11:35 [From Neosporin ([id number])] neomycin Allergy Severe rash Verified 03/08/25 11:35 [From Neosporin ([id number])] polymyxin B Allergy Severe rash Verified 03/08/25 11:35 [From Neosporin ([id number])] peanut AdvReac Intermediate THROAT Verified 03/08/25 11:35 SCRATCHY,SWELLING Home Medications Medication Instructions Recorded Confirmed Type ascorbate calcium (vitamin C) 500 500 mg PO QPM 06/19/19 03/08/25 History mg tablet multivitamin (Multiple Vitamins 1 tab PO QPM 06/19/19 03/08/25 History tablet) nitroglycerin 0.4 mg sublingual 0.4 mg sublingual DIRECTED PRN 06/19/19 03/08/25 History tablet Chest Pain cetirizine 10 mg tablet (Zyrtec) 10 mg PO DAILY PRN Congestion 11/22/22 03/08/25 History clopidogrel 75 mg tablet 75 mg PO DAILY #90 tabs 07/01/24 03/08/25 Rx atorvastatin 80 mg tablet 80 mg PO HS #90 tabs 08/03/24 03/08/25 Rx dulaglutide 3 mg/0.5 mL 3 mg (0.5 mL) subcut ONCE #12 08/03/24 03/08/25 Rx subcutaneous pen injector syringes ([facility]) glimepiride 4 mg tablet 4 mg PO QAM 90 days #90 tabs 08/03/24 03/08/25 Rx metformin 500 mg tablet 1,000 mg (2 x 500 mg) PO BID #360 08/03/24 03/08/25 Rx tabs blood sugar diagnostic (OneTouch #100 strips 09/03/24 02/16/25 Rx Ultra Test strips) levothyroxine 50 mcg tablet 50 mcg PO QAM #90 tabs 01/25/25 03/08/25 Rx isosorbide mononitrate 120 mg 180 mg (1.5 x 120 mg) PO QAM #135 02/17/25 03/08/25 Rx tablet,extended release 24 hr tabs metoprolol tartrate 50 mg tablet 25 mg (1/2 x 50 mg) PO BID #90 tabs 02/17/25 03/08/25 Rx Past Med/Surg History Problem List (Updated 03/08/25 @ 11:33 by Dea Christopher PA-C) Chest pain Anemia (Acute) Balance problems (Chronic) URI (upper respiratory infection) (Acute) History of colon polyps CAD (coronary artery disease) (Chronic) Hyponatremia 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) Postural dizziness (Acute) Peripheral neuropathy (Chronic) Hypothyroidism (Chronic) Hyperlipidemia (Chronic) Angina, class II (Acute) Allergic rhinitis (Acute) Tubular adenoma of colon (~06/2019) x3 colonoscopy 06/2019 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) History of basal cell carcinoma History of COVID-19 Internal derangement of shoulder Rotator cuff tear, left (Chronic) Anemia Antiplatelet or antithrombotic long-term use Medical History Fatigue Exertional angina Hypoxia Pneumonia due to COVID-19 virus Hypoxia Pneumonia due to COVID-19 virus Arthritis Hyperlipidemia History of EKG Hypothyroid CAD (coronary artery disease) Diabetes Surgical History History of colonoscopy (06/2019) S/P Mohs surgery for basal cell carcinoma History of coronary artery stent placement History of cardiac cath History of open reduction and internal fixation (ORIF) procedure History of ankle surgery History of intravascular stent placement Family History Mother Diabetes Uncle Myocardial infarction Denies family history of Ovarian cancer Prostate cancer Breast cancer Colorectal cancer Social History (Updated 02/16/25 @ 11:30 by JAD Taylor) Smoking Status: Former smoker Tobacco Type: Cigarettes Age Started Using Tobacco: 18; Age Quit Using Tobacco: 36; packs per day: 0.5; Cigarettes Per Day: <10; Second Hand Exposure: No; Do You Dip or Chew Tobacco: No; Hx Alcohol Use: Yes Alcohol type: beer Alcohol Intake Frequency: Monthly or Less Hx Substance Use: No Preferred Language: German Communication Ability: Effective Visual Impairment: No Limitations Hearing Ability: Normal Medical Parasitologist Required: No Beliefs That Will Affect Care: None marital status: Current Living Situation: Spouse Current Living Situation Comment: lives at home with current occupational status: retired current occupation: had his own water treatment business Feels Safe at Home: Yes Safety Concerns: Feels Safe At This Time Childhood Exposure to Second-Hand Smoke: Yes Diet: regular caffeine: Yes (coffee) during the past year weight has: remained stable Dental Care, Regularly: Yes Physical Activity Frequency: Daily Seatbelt Use: always Sunscreen Use: No Assistive Devices: Denture - Upper and Denture - Lower Physical Exam Constitutional: WD/WN, vitals as above Eyes: PERRL, conjunctivae normal, anicteric sclerae ENMT: external ear and nose normal, oropharynx normal Respiratory: normal respiratory effort, lungs clear to auscultation Cardiovascular: RRR, no murmur, no edema Gastrointestinal (Abdomen): normal bowel sounds, soft, nontender, no hepatosplenomegaly Skin: no rashes, warm and dry Neurologic: PERRL, EOMI, accommodation nl, no face palsy, no dysarthria Psychiatric: A+Ox3, euthymic affect Results & Data Results & Data Vital Signs (Past 12 Hours) Vital Signs Temp Pulse Resp BP Pulse Ox O2 Del Method 03/08/25 10:16 58 L 03/08/25 09:31 99 Room Air 03/08/25 09:31 99 Room Air 03/08/25 09:23 36.1 C L 65 18 150/73 H 97 Supervising Physician Co-Signing Physician Notes The patient was seen by me. The chart was reviewed. Case discussed with LIYA De. Agree with assessment and plan PG Care Time/CCT Total # of Minutes Spent Total Time Spent with Patient: Total time spent is greater than 50% in coordination of care (as documented) at patient's floor/unit and/or counseling patient: Coding Level of Care Code 51948 INT INP/OBS CARE Diagnoses Coronary artery disease involving [place] coronary artery of [place] heart without angina pectoris I25.10 Associated angina: without angina Coronary Disease-Associated Artery/Lesion type: [place] artery [place] vs. transplanted heart: [place] heart Chest pain R07.9 Diabetes E11.9 (1) CAD (coronary artery disease) Associated angina: without angina Coronary Disease-Associated Artery/Lesion type: [place] artery [place] vs. transplanted heart: [place] heart Qualified Code(s): I25.10 - Atherosclerotic heart disease of [place] coronary artery without angina pectoris
[2025-03-08] MEDS ORDERED: ACETAMINOPHEN 325 MG TAB PO PRN (11:41)
[2025-03-08] MEDS ORDERED: ONDANSETRON INJ 2 MG/ML 2 ML VIAL IV PRN (11:41)
[2025-03-08] MEDS ORDERED: GLUCOSE 40% GEL 15 GM TUBE PO PRN (12:37)
[2025-03-08] MEDS ORDERED: GLUCAGON FOR INJ 1 MG VIAL SQ PRN (12:37)
[2025-03-08] MEDS ORDERED: CARBOHYDRATES FOR HYPOGLYCEMIA PO PRN (12:37)
[2025-03-08] MEDS ORDERED: GLUCOSE 10 TAB/TUBE PO PRN (12:37)
[2025-03-08] MEDS ORDERED: DEXTROSE 50% 50 ML SYRINGE IV PRN (12:37)
[2025-03-08] MEDS: ISOSORBIDE MONO EXTENDED REL 60 MG TABCR PO SCH (12:41)
--- NOTE | 2025-03-08 12:48 | Electrocardiogram Report ---
Test Reason : Blood Pressure : */* mmHG Vent. Rate : 61 BPM Atrial Rate : 61 BPM P-R Int : 210 ms QRS Dur : 90 ms QT Int : 406 ms P-R-T Axes : 14 -8 50 degrees QTcB Int : 408 ms Sinus rhythm with sinus arrhythmia with 1st degree A-V block Otherwise normal ECG When compared with ECG of 06-Feb-2024 12:59, (unconfirmed) Premature atrial complexes are no longer Present Confirmed by Jason Goldstein ([id number]) on 03/08/2025 12:48:08 PM Referred By: Confirmed By: Jason Goldstein
[2025-03-08] MEDS: CLOPIDOGREL BISULFATE 75 MG TAB PO ONE (13:15)
--- NOTE | 2025-03-08 14:27 | XCELERA ---
[id number] \\[id number]\[id number]
[2025-03-08] MEDS: INSULIN ASPART PER UNIT CHARGE SC SCH (14:28)
[2025-03-08] MEDS: ATORVASTATIN 40 MG TAB PO SCH (21:06)
[2025-03-08] MEDS: METOPROLOL TARTRATE 25 MG TAB PO SCH (21:06)
[2025-03-09] MEDS: LEVOTHYROXINE SODIUM 50 MCG TABLET PO SCH (05:38)
[2025-03-09 07:06] LABS: Hematocrit (blood only) 32.7 % (42.0-52.0); Hemoglobin 11.1 g/dl (14.0-18.0); Mean Corpuscular Hemoglobin 30.6 pg (25.0-34.0); Mean Corpuscular Hgb Conc 33.9 g/dL (32.0-36.0); Mean Corpuscular Volume 90.1 fL (80.0-100.0); Mean Platelet Volume 9.8 fL (9.4-12.4); Platelet Count 313 K/uL (130-400); RDW Coefficient of Variation 13.4 % (11.5-14.5); Red Blood Count 3.63 M/uL (4.70-6.10); White Blood Count 8.83 K/ul (4.8-10.8)
[2025-03-09 07:34] LABS: BUN Creatinine Ratio 18.7 (10-20); Calcium 8.9 mg/dl (8.6-10.3); Potassium 4.1 mmol/L (3.5-5.1)
[2025-03-09 07:49] LABS: Thyroid Stimulating Hormone 1.999 uIu/ml (0.300-4.500)
[2025-03-09] MEDS: CLOPIDOGREL BISULFATE 75 MG TAB PO SCH (08:46)
--- NOTE | 2025-03-09 10:07 | Electrocardiogram Report ---
Test Reason : Blood Pressure : */* mmHG Vent. Rate : 52 BPM Atrial Rate : 52 BPM P-R Int : 208 ms QRS Dur : 88 ms QT Int : 454 ms P-R-T Axes : 26 7 51 degrees QTcB Int : 422 ms Sinus bradycardia Otherwise normal ECG When compared with ECG of 08-Mar-2025 09:40, No significant change was found Confirmed by Jason Goldstein ([id number]) on 03/09/2025 10:06:31 AM Referred By: REFERRED SELF Confirmed By: Jason Goldstein
--- NOTE | 2025-03-09 15:15 | Hospitalist Progress Note ---
Date of Service March 09, 2025 Assessment & Plan (1) CAD (coronary artery disease): (2) Chest pain: (3) Diabetes: Plan This is a 79 year old gentleman with past medical history of Type 2 diabetes, hypothyroidism, angina, anemia, and allergic rhinitis who presented to the ED on 03/08 with chest pain. #CAD/Chest pain Recently seen by cardiology 12/2024 at which his cardiac status was unchanged. Patient has a history of cardiac stent placement in 2007. Stress echo 03/25/2024: Negative exercise stress echo. Resting echo with normal biventricular systolic function, moderate left ventricular hypertrophy and no significant valvular abnormalities. CBC (hgb @ baseline) /BMP stable (Na @ baseline) Troponin negative Chest x-ray negative Echocardiogram unremarkable Ordered stress echo to be done tomorrow 03/10 Continue Plavix, isosorbide mononitrate, metoprolol tartrate, atorvastatin. #Type 2 Diabetes Most recent A1c 12/2024: 8.1% On Trulicity, glimepiride, metformin outpatienthold while inpatient Sliding scale coverage Chronic conditions: Hypothyroidism: Levothyroxine, TSH 01/2024 WNL, repeat in AM DVT prophylaxis: SCD's. Code: full Likely discharge tomorrow 03/10 provided stress test negative Admission and Anticipated Discharge Date Admission Date: March 08, 2025 Subjective Patient feels well overall. Denies chest pain at this time. But he tells me that he has had exertional chest pain lately. Review of Systems Review of Systems: All systems reviewed & are unremarkable except as noted in Subjective Physical Exam Physical Exam: General: Awake, conversant Heart: S1, S2/regular rate and rhythm, no murmur rubs or gallops Lungs: Clear to auscultation bilaterally. Normal effort Abdomen: Soft/nontender/nondistended. No hepatosplenomegaly Extremities: No clubbing/cyanosis. No edema Behavior: Appropriate, cooperative Results & Data Results & Data Vital Signs (Past 12 Hours) Vital Signs Temp Pulse Resp BP Pulse Ox O2 Del Method 03/09/25 11:36 36.4 C L 85 16 115/64 98 Room Air 03/09/25 07:49 36.5 C 62 18 119/68 98 Room Air 03/09/25 03:19 36.5 C 59 L 16 126/65 98 Room Air Laboratory Results Abnormal lab results 03/08/25 03/08/25 03/09/25 Range/Units 17:18 20:30 06:29 RBC 3.63 L (4.70-6.10) M/uL Hgb 11.1 L (14.0-18.0) g/dl Hct 32.7 L (42.0-52.0) % Glucose 140 H (70-99(Fasting)) mg/dl POC Glucose 197 H 169 H (70-99) mg/dl 03/09/25 03/09/25 03/09/25 Range/Units 08:19 12:32 13:55 RBC (4.70-6.10) M/uL Hgb (14.0-18.0) g/dl Hct (42.0-52.0) % Glucose (70-99(Fasting)) mg/dl POC Glucose 152 H 232 H 271 H (70-99) mg/dl PG Care Time/CCT Total # of Minutes Spent Total Time Spent with Patient: Total time spent is greater than 50% in coordination of care (as documented) at patient's floor/unit and/or counseling patient: Coding Level of Care Code 72301 SUB INP/OBS CARE 2MIN Diagnoses Coronary artery disease involving [place] coronary artery of [place] heart without angina pectoris I25.10 Coronary Disease-Associated Artery/Lesion type: [place] artery [place] vs. transplanted heart: [place] heart Associated angina: without angina Chest pain R07.9 Diabetes E11.9 (1) CAD (coronary artery disease) Coronary Disease-Associated Artery/Lesion type: [place] artery [place] vs. transplanted heart: [place] heart Associated angina: without angina Qualified Code(s): I25.10 - Atherosclerotic heart disease of [place] coronary artery without angina pectoris
[2025-03-10 07:14] VITALS: TEMP 97.5
[2025-03-10] MEDS ORDERED: METOPROLOL TARTRATE 1 MG/ML VIAL IV ONE (09:13)
[2025-03-10] MEDS ORDERED: ATROPINE SULFATE 0.1 MG/ML 10ML SYR IV ONE (09:13)
[2025-03-10] MEDS ORDERED: DOBUTamine HCL 12.5 MG/ML 20 ML VIAL IV ONE (09:13)
--- NOTE | 2025-03-10 10:44 | XCELERA ---
[id number] \\ISCV-[email or web address]\[email or web address]_[id number]
[2025-03-10 10:53] VITALS: BP 141/75; PULSE 77; RESP 17; O2SAT 97
--- NOTE | 2025-03-10 11:45 | Discharge Summary ---
Date of Service March 10, 2025 Admission HPI Per Admitting Provider This is a 79 year old gentleman with past medical history of Type 2 diabetes, hypothyroidism, angina, anemia, and allergic rhinitis who presented to the ED on 03/08 with chest pain. The patient was seen and examined this morning with his . Patient states that on 03/06 he started to develop exertional chest pain. He reports that he had a few episodes of this recently. He states that the first [place] occurred he di d experience some nausea associated with it. Since then he states that he has not felt right. He admits to feeling more fatigued than usual. He states that he does have a prescription of nitro as needed for chest pain but believes that he threw this away because he has not needed it in so long. This morning he did not take his morning medications prior to coming to the ER. He had called his c ardiologist who recommended he report here. He denies any cough or shortness of breath. He denies any indigestion. He states his appetite has been okay and he ate a large Easter dinner yesterday. He denies any lower extremity edema. Denies any back pain. Denies any urinary symptoms. Code discussion took place with the patient at time of admission and he is a full code. While in the emergency department, patient had a stable CBC and BMP. His troponin was negative. He had a chest x-ray that was negative. It was then recommended that he be admitted for further observation. Admission Exam Per Admitting Provider Constitutional: WD/WN, vitals as above Eyes: PERRL, conjunctivae normal, anicteric sclerae ENMT: external ear and nose normal, oropharynx normal Respiratory: normal respiratory effort, lungs clear to auscultation Cardiovascular: RRR, no murmur, no edema Gastrointestinal (Abdomen): normal bowel sounds, soft, nontender, no hepatosp lenomegaly Skin: no rashes, warm and dry Neurologic: PERRL, EOMI, accommodation nl, no face palsy, no dysarthria Psychiatric: A+Ox3, euthymic affect Principal Diagnosis Atypical chest pain. ACS ruled out. Negative stress test Discharge Exam General: Awake, conversant Heart: S1, S2/regular rate and rhythm, no murmur rubs or gallops Lungs: Clear to auscultation bilaterally. Normal effort Abdomen: Soft/nontender/nondistended. No hepatosplenomegaly Extremities: No clubbing/cyanosis. No edema Behavior: Appropriate, cooperative Discharge Data Allergies Allergy/AdvReac Type Severity Reaction Status Date / Time bacitracin Allergy Severe rash Verified 03/08/25 11:35 [From Neosporin ([id number])] neomycin Allergy Severe rash Verified 03/08/25 11:35 [From Neosporin ([id number])] polymyxin B Allergy Severe rash Verified 03/08/25 11:35 [From Neosporin ([id number])] peanut AdvReac Intermediate THROAT Verified 03/08/25 11:35 SCRATCHY,SWELLING Consultations 03/08/25 10:47 ED Decision to Admit Stat Ordered Studies Chest X-Ray 03/08/25 09:31 XR chest 1V portable CLINICAL HISTORY: Chest pain, nonspecific COMPARISON STUDY: 10/16/2020 FINDINGS: Heart size and pulmonary vasculature are normal. There is no consolidation or pleural effusion. No pneumothorax. Stable minimal reticular opacity left lung base, likely scarring or atelectasis. IMPRESSION: No acute findings seen. ACT 112: Negative or not required by law. Electronically signed by: Travon White M.D. 03/08/2025 10:08 AM Hospital Course (1) CAD (coronary artery disease): (2) Chest pain: (3) Diabetes: Plan This is a 79 year old gentleman with past medical history of Type 2 diabetes, hypothyroidism, angina, anemia, and allergic rhinitis who presented to the ED on 03/08 with chest pain. #CAD/Chest pain Recently seen by cardiology 12/2024 at which his cardiac status was unchanged. Patient has a history of cardiac stent placement in 2007. Stress echo 03/25/2024: Negative exercise stress echo. Resting echo with normal biventricular systolic function, moderate left ventricular hypertrophy and no significant valvular abnormalities. CBC (hgb @ baseline) /BMP stable (Na @ baseline) Troponin negative Chest x-ray negative Echocardiogram unremarkable Stress echo done today 03/10 negative Continue Plavix, isosorbide mononitrate, metoprolol tartrate, atorvastatin. #Type 2 Diabetes Most recent A1c 12/2024: 8.1% On Trulicity, glimepiride, metformin outpatienthold while inpatient Sliding scale coverage Chronic conditions: Hypothyroidism: Levothyroxine, TSH 01/2024 WNL Patient stable for discharge today Total Time Total Time Spent Total Time Spent (In Minutes): 35 Discharge Plan Discharge Items Patient Disposition: Home - Self-Care Reason For Visit: CHEST PAIN Discharge Diagnosis: Atypical chest pain Activity: Resume your previous activity Non-emergency contact: Primary Care Provider Call non-emergency contact if: you have any medication questions and your symptoms worsen Follow-up/Referrals: Johnnie Balbuena DO [Primary Care Provider] - 03/17/25 11:00 am Diet: Carb Consistent or DM2 and Heart Healthy Addtl Attending Provider Instructions: Advised to follow-up with PCP in 1 week Advised to follow-up with cable armorer in 1 month Pending Studies at Discharge: No Stand-Alone Forms: My [employer] Medications and DC Order Prescriptions: Continued (DME) OneTouch Ultra Test Strip See Rx Instructions .ROUTE .COMPLEX Qty: 100 3RF Dose Instruction: TAKE ONCE DAILY NEEDED Rx Instructions: TAKE ONCE DAILY NEEDED levothyroxine 50 mcg tablet 50 mcg PO QAM Qty: 90 3RF isosorbide mononitrate 120 mg tablet extended release 24 hr 180 mg PO QAM Qty: 135 3RF metoprolol tartrate 50 mg tablet 25 mg PO BID Qty: 90 3RF multivitamin [Multiple Vitamins] tablet 1 tab PO QPM Rx Instructions: Unable to verify OTC meds at this date/time. nitroglycerin 0.4 mg tablet, sublingual 0.4 mg SL DIRECTED PRN (Reason: Chest Pain) Rx Instructions: PLACE ONE TABLET UNDER THE TONGUE EVERY 5 MINUTES FOR UP TO 3 DOSES OVER 15 MINUTES IF NEEDED FOR CHEST PAIN ascorbate calcium (vitamin C) 500 mg tablet 500 mg PO QPM Rx Instructions: Unable to verify OTC meds at this date/time. Trulicity 3 mg/0.5 mL pen injector 3 mg subcut ONCE Qty: 12 3RF Rx Instructions: 3mg SQ once every 7days metformin 500 mg tablet 1,000 mg PO BID Qty: 360 3RF glimepiride 4 mg tablet 4 mg PO QAM 90 Days Qty: 90 3RF atorvastatin 80 mg tablet 80 mg PO HS Qty: 90 3RF clopidogrel 75 mg tablet 75 mg PO DAILY Qty: 90 3RF cetirizine [Zyrtec] 10 mg Tablet 10 mg PO DAILY PRN (Reason: Congestion) Rx Instructions: Unable to verify OTC meds at this date/time. Discharge Orders: Discharge Order (Routine); Ordered 03/10/25 Ordered By: José Luis Gil Admission Data Admit Date/Time: 03/08/25 11:12 Attending Provider: José Luis Gil Admit Provider: Damien Rod Primary Care Provider: Johnnie Balbuena Other Providers: Cal Crews Jr; Damien Rod Other Interventions: Discharge Summary Assessment (RN) Last Done: 03/10/25 12:34
== END 2025-03-10 13:24 | disposition home or self-care (01) ==
LOC: 2N 09:21 → ED 09:21 → SUATTDRO 11:12 → 2N 11:37